=== PATIENT | female | born 1955 | race African-American/Black ===

== ENCOUNTER 2019-08-21 15:40 | IRF | payer OTHER, MEDICAID, MEDICARE, SELFPAY ==
[2019-08-21 15:40] VITALS: BP 154/80; PULSE 85; RESP 17; TEMP 36.5; O2SAT 100
[2019-08-21 16:26] VITALS: BMI 18.8
--- NOTE | 2019-08-21 16:43 | ADMGEN ---
This patient, Elina Reagan Sr., was admitted to [facility] Room 224-02. Patient/family oriented to hospital policies and general routines including ID bracelet, bed and alarms, visiting hours, pain management, procedures, bathroom and other care routines, personal items, smoking policy, room service/diet, and visiting hours. Valuables list has been completed. Information on how to activate the Rapid Response Team has been discussed. Patient/Family are encouraged to report perceived risks to care and to ask questions if they do not understand what they are told or what they should do.
--- NOTE | 2019-08-21 18:40 | PC.NURSE ---
CALLED PATIENT'S SISTER ORION TO ASK HER ADMISSION QUESTIONS. SISTER WAS ABLE TO ANSWER SOME QUESTIONS. PATIENT GOES BY [facility].
[2019-08-21 20:00] VITALS: PULSE 87; RESP 18; O2SAT 100
--- NOTE | 2019-08-21 20:05 | PC.NURSE ---
1700 and 1800 meds not available yet from pharmacy to give.
[2019-08-21 22:00] VITALS: BP 171/83; PULSE 87; RESP 18; TEMP 36.4; O2SAT 100
[2019-08-21] MEDS: AMITRIPTYLINE HCL 25 MG TABLET PO (22:24)
[2019-08-21] MEDS: MONTELUKAST SODIUM 10 MG TABLET PO (22:24)
[2019-08-21 22:25] VITALS: PULSE 87
[2019-08-21] MEDS: carvediloL 3.125 MG TABLET PO (22:25)
[2019-08-22] MEDS: SALINE 0.65% NAS SOLN 44 ML BTL 1 SPRAY NASAL (02:19)
[2019-08-22 04:51] LABS: Basophils Percent Auto 0.5 % (0.2-1.2); Eosinophils Absolute Auto 0.5 K/mm3 (0-0.3); Eosinophils Percent Auto 5.9 % (0-4.4); Hematocrit 42.6 % (37.0-47.0); Hemoglobin 13.6 g/dL (12.0-15.0); Immature Granulocyte Absolute 0.03 K/mm3 (0.00-0.031); Immature Granulocyte Percent A 0.3 % (0-0.5); Lymphocytes Absolute Auto 1.92 K/mm3 (0.9-3.2); Lymphocytes Percent Auto 22.1 % (18.3-44.2); Mean Corpuscular HGB Conc 31.9 g/dl (32-36); Mean Corpuscular Volume 84.7 fl (80-100); Mean Platelet Volume 10.2 fl (7.4-10.4); Monocytes Absolute Auto 0.7 K/mm3 (0.1-0.6); Monocytes Percent Auto 7.6 % (2.6-8.5); Neutrophils Absolute Auto 5.5 K/mm3 (1.3-6.7); Neutrophils Percent Auto 63.6 % (45.5-73.1); Platelet Count Result 431 k/mm3 (150-375); Red Blood Count 5.03 M/mm3 (4.2-5.4); Red Cell Distribution Width 14.3 % (11.5-14.5); White Blood Count 8.7 K/mm3 (4.5-10.0)
[2019-08-22 05:10] LABS: Blood Urea Nitrogen 26 mg/dL (7-17); Calcium 9.7 mg/dL (8.4-10.2); Carbon Dioxide 24 mmol/L (22-30); Chloride 104 mmol/L (98-107); Cholesterol 116 mg/dL (0-200); Estimated CRCL calculation 42 ml/min; Estimated Glomerular Filt Rate > 60; Glucose 90 mg/dL (65-105); HDL Direct 26 mg/dL; Potassium 3.6 mmol/L (3.4-5.0); Sodium 137 mmol/L (137-145); Triglycerides 93 mg/dL (<150)
[2019-08-22 05:20] LABS: LDL Cholesterol Direct 56 mg/dL
[2019-08-22 06:00] VITALS: BP 147/84; PULSE 76; RESP 18; TEMP 36.6; O2SAT 100
[2019-08-22 08:26] VITALS: PULSE 76
[2019-08-22] MEDS: carvediloL 3.125 MG TABLET PO ×2 (08:26→21:37)
[2019-08-22] MEDS: ASPIRIN 325 MG TABLET PO (08:26)
[2019-08-22] MEDS: AMITRIPTYLINE HCL 25 MG TABLET PO ×2 (08:26→17:11)
[2019-08-22] MEDS: SPIRONOLACTONE 25 MG TABLET PO (08:26)
[2019-08-22] MEDS: ATORVASTATIN 40 MG TABLET 80 MG PO (08:27)
[2019-08-22] MEDS: POTASSIUM CHLORIDE 20 MEQ PACKET (FOR LIQUID) PO (08:27)
[2019-08-22] MEDS: FUROSEMIDE 10 MG TABLET PO (08:28)
--- NOTE | 2019-08-22 12:30 | WPDREHABHP ---
H&P: HPI History of Present Illness Chief complaint: CVA Narrative: Elina Reagan is a 63 year old femaleHISTORY OF PRESENT ILLNESS: The patient's primary rehab impairment category is 0 1/stroke The etiologic diagnosis is left middle cerebral artery territory infarction with mild local mass effect I saw this patient [id number] on August 22, 2019 at 12:30 p.m. The patient is a 63-year-old Afro Cym[place] woman with a past medical history of hypertension, diabetes mellitus type 2, mitral regurgitation, coronary artery disease, and right hemispheric stroke with no residual who presented to [facility] in [facility] with acute onset of aphasia and the right sided weakness. NIHSS was 17. Head CT showed old right parietal lobe infarct with no acute findings. TPA was administered at 11 12 on August 14, 2019. CTA was negative for large vessel occlusion. She was transferred to [facility] for further management. On arrival to [place] she was severely aphasic awake but inattentive with minimal right upper extremity/ right lower extremity movement. Neurology was consulted and after tPA precautions were exhausted the patient was restarted on aspirin and Plavix. Atorvastatin was resumed. Permissive hypertension was allowed. SHARIF on August 17, 2019 was negative for shunt or anything else is action fraction was 35%. Patient was diagnosed with the UTI and started on IV ceftriaxone which was completed on August 19, 2019. She failed her initial swallowing study that was retested on August 19, 2019 and past for a dysphagia 2 diet. Physical examination continues to reveal right-sided significant weakness decreased gross motor control impaired balance decreased safety awareness along with severe aphasia both receptive and expressive. Neurologic Neurology discontinued her Plavix on August 18, 2019 as there is no clear indication for use since she is continued on aspirin 325 milligram daily according to the screening protocol the patient was supposed to be on Lovenox for DVT prophylaxis which she has a good started here as she was getting over there. The patient has not traveled outside the [place] or had close personal contact with anyone that is ill that has traveled outside the [place] in the past 21 days. Patient has not traveled to an area of the [place] that is experiencing noon transmission of the Coronavirus and has not had close personal contact with anyone that has. The patient does not have a fever and is not experiencing any upper or LEs periphery illness Therapy was initiated at the acute care facility and the patient transferred to us from [facility] on August 21, 2019 on FALLS OR SURGERIES: The patient has had no major surgeries in the 100 days prior to admission. They had no falls in the past year. They had no falls with injury in the past year. 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 SOCIAL HISTORY: The patient lives with her in a 1 level home with 60 steps to enter. She was completely independent and driving prior. Her is disabled. Son is available to assist patient following rehab if necessary. I spoke with the patient's sister as patient is aphasic ( this is the communication between the sister on our screener ) there is no reported falls or major surgery former smoker occasional alcohol use no drug use FAMILY HISTORY: mother with heart attack diabetes and hypertension PRIOR LEVEL OF FUNCTION: Eating was INDEPENDENT Oral Care was INDEPENDENT Toileting Hygiene was IN
[2019-08-22 14:00] VITALS: BP 127/81; PULSE 84; RESP 20; TEMP 37.1; O2SAT 98
[2019-08-22] MEDS: ENOXAPARIN 40 MG/0.4 ML SYRINGE SUB-Q (17:10)
[2019-08-22] MEDS: MONTELUKAST SODIUM 10 MG TABLET PO (17:11)
[2019-08-22 21:37] VITALS: PULSE 82
[2019-08-22 22:00] VITALS: BP 127/72; PULSE 88; RESP 18; TEMP 36.7; O2SAT 98
[2019-08-23 06:00] VITALS: BP 114/83; PULSE 76; RESP 16; TEMP 36.3; O2SAT 100
[2019-08-23] MEDS: AMITRIPTYLINE HCL 25 MG TABLET PO ×2 (09:48→17:49)
[2019-08-23] MEDS: ATORVASTATIN 40 MG TABLET 80 MG PO (09:48)
[2019-08-23] MEDS: ASPIRIN 325 MG TABLET PO (09:48)
[2019-08-23] MEDS: ENOXAPARIN 40 MG/0.4 ML SYRINGE SUB-Q (09:48)
[2019-08-23 09:49] VITALS: PULSE 68
[2019-08-23] MEDS: POTASSIUM CHLORIDE 20 MEQ PACKET (FOR LIQUID) PO (09:49)
[2019-08-23] MEDS: FUROSEMIDE 10 MG TABLET PO (09:49)
[2019-08-23] MEDS: SPIRONOLACTONE 25 MG TABLET PO (09:49)
[2019-08-23] MEDS: carvediloL 3.125 MG TABLET PO ×2 (09:49→21:08)
[2019-08-23 14:00] VITALS: BP 144/89; PULSE 52; RESP 18; TEMP 36.9; O2SAT 100
--- NOTE | 2019-08-23 17:21 | WPDNEURORHBP ---
Subjective Date/time seen: 08/23/19 17:21 Interval history: this 63-year-old woman is here after having had rather significant left hemispheric stroke which has left her with aphasia and dense right-sided almost hemiplegia she is not eating much and would require making A's which have ordered overall picture is stable seems to be not any distress and as best I could determine determine she has not any pain particularly denies any headache chest pain fever chills sore throat Review of Systems Review of Systems: All systems reviewed & are unremarkable except as noted in HPI and below Functional Status Ambulation Ability Ambulation Assistive Devices: Parallel Bars Transfers Ability Ability to Transfer In/Out of Chair: Maximum Assistance X 1 Exam Const: General: comfortable and no acute distress HENMT: General nose exam: Normal nares present Mouth: Yes moist mucous membranes Eyes: General: appearance normal, both eyes and all related structures Neck: Neck: supple and no JVD Resp: Effort & Inspection: normal respiratory effort Auscultation: clear to auscultation bilaterally Cardio: Rate: regular rate Rhythm: regular rhythm GI: GI Palp: Yes Soft to palpation Auscultation: normal bowel sounds Skin: General skin exam: normal color and no rashes or lesions noted Neuro: Other: dense aphasia and right-sided weakness Extrem: General: normal to inspection Psych: Other: aphasic Objective Data Vital Signs Vital Signs: Vital Signs - 24 hr 08/22/19 21:37 08/22/19 22:00 08/23/19 06:00 Temperature 36.7 C 36.3 C L Pulse Rate 82 88 76 Respiratory Rate 18 16 Blood Pressure 127/72 114/83 Pulse Oximetry 98 100 08/23/19 09:49 08/23/19 14:00 Temperature 36.9 C Pulse Rate 68 52 L Respiratory Rate 18 Blood Pressure 144/89 H Pulse Oximetry 100 Intake/Output Intake/Output: Intake & Output 08/20/19 08/21/19 08/22/19 08/23/19 23:59 23:59 23:59 23:59 Intake Total 100 240 120 Balance 100 240 120 Meds/Results Medications: Active Medications Generic Name Dose Route Start Last Admin Trade Name Freq PRN Reason Stop Dose Admin Amitriptyline HCl 25 mg 08/21/19 17:00 08/23/19 09:48 Elavil PO 25 mg BID CYRIL Administration Aspirin 325 mg 08/22/19 09:00 08/23/19 09:48 Aspirin PO 325 mg DAILY CYRIL Administration Atorvastatin Calcium 80 mg 08/22/19 09:00 08/23/19 09:48 Lipitor PO 80 mg DAILY CYRIL Administration Carvedilol 3.125 mg 08/21/19 21:00 08/23/19 09:49 Coreg PO 3.125 mg Q12HR CYRIL Administration Enoxaparin Sodium 40 mg 08/23/19 09:00 08/23/19 09:48 Lovenox SUB-Q 40 mg DAILY CYRIL Administration Furosemide 10 mg 08/22/19 09:00 08/23/19 09:49 Lasix Tablet PO 10 mg DAILY CYRIL Administration Montelukast Sodium 10 mg 08/21/19 18:00 08/22/19 17:11 Singulair PO 10 mg QPM CYRIL Administration Potassium Chloride 20 meq 08/22/19 09:00 08/23/19 09:49 Kcl Powder (For Liquid) PO 20 meq DAILY CYRIL Administration Sodium Chloride 1 spray 08/22/19 01:56 08/22/19 02:19 [place] Nasal [place] NASAL 1 spray Q6HR PRN Administration Congestion Spironolactone 25 mg 08/22/19 09:00 08/23/19 09:49 Aldactone PO 25 mg DAILY CYRIL Administration Progress Note: A&P Assessment and Plan (1) History of stroke: Code(s): Z86.73 - Personal history of transient ischemic attack (TIA), and cerebral infarction without residual deficits Status: Acute (2) Hypertension: Code(s): I10 - Essential (primary) hypertension Status: Acute (3) Diabetes mellitus: Code(s): E11.9 - Type 2 diabetes mellitus without complications Status: Acute (4) Left middle cerebral artery stroke: Code(s): I63.512 - Cerebral infarction due to unspecified occlusion or stenosis of left middle cerebral artery Status: Acute Additional Plan continue speech PT OT add Megace for appetite rest of
[2019-08-23] MEDS: MONTELUKAST SODIUM 10 MG TABLET PO (17:49)
[2019-08-23 21:08] VITALS: PULSE 72
[2019-08-23 22:00] VITALS: BP 125/97; PULSE 88; RESP 18; TEMP 36.4; O2SAT 100
[2019-08-24 05:11] LABS: Potassium 4.2 mmol/L (3.4-5.0)
[2019-08-24 05:19] LABS: Hemoglobin A1C 5.6 % (<5.7)
[2019-08-24 06:00] VITALS: BP 137/82; PULSE 46; RESP 18; TEMP 36.1; O2SAT 100
[2019-08-24] MEDS: MEGESTROL ACETATE (*CHEMO) ORAL SUSP 40 MG/ML SYR 400 MG PO ×2 (08:33→17:06)
[2019-08-24] MEDS: ATORVASTATIN 40 MG TABLET 80 MG PO (08:33)
[2019-08-24 08:34] VITALS: PULSE 48
[2019-08-24] MEDS: ENOXAPARIN 40 MG/0.4 ML SYRINGE SUB-Q (08:34)
[2019-08-24] MEDS: POTASSIUM CHLORIDE 20 MEQ PACKET (FOR LIQUID) PO (08:34)
[2019-08-24] MEDS: SPIRONOLACTONE 25 MG TABLET PO (08:34)
[2019-08-24] MEDS: ASPIRIN 325 MG TABLET PO (08:34)
[2019-08-24] MEDS: FUROSEMIDE 10 MG TABLET PO (08:35)
[2019-08-24 09:41] VITALS: BMI 18.8
--- NOTE | 2019-08-24 11:06 | WPDNEURORHBP ---
Subjective Date/time seen: Left hemisphericstroke with aphasia and right hemiplegia with DM08/24/19 11:06 Review of Systems Review of Systems: All systems reviewed & are unremarkable except as noted in HPI and below Functional Status Ambulation Ability Ambulation Assistive Devices: Parallel Bars Transfers Ability Ability to Transfer In/Out of Chair: Maximum Assistance X 1 Exam Const: General: no acute distress HENMT: Head: normal to inspection General nose exam: Normal external nose present and No nasal discharge present Mouth: Yes Normal oral and palatal mucosa present Eyes: General: appearance normal, both eyes and all related structures Neck: Neck: normal visual inspection Resp: Effort & Inspection: normal respiratory effort Auscultation: clear to auscultation bilaterally Cardio: Rate: regular rate Rhythm: regular rhythm GI: Auscultation: normal bowel sounds Skin: General skin exam: no rashes or lesions noted Neuro: Speech: aphasia Motor exam (neuro): Abnormal motor strength present (right hemiplegia) Psych: Appearance: grossly normal Objective Data Vital Signs Vital Signs: Vital Signs - 24 hr 08/23/19 14:00 08/23/19 21:08 08/23/19 22:00 Temperature 36.9 C 36.4 C L Pulse Rate 52 L 72 88 Respiratory Rate 18 18 Blood Pressure 144/89 H 125/97 H Pulse Oximetry 100 100 08/24/19 06:00 08/24/19 08:34 Temperature 36.1 C L Pulse Rate 46 L 48 L Respiratory Rate 18 Blood Pressure 137/82 Pulse Oximetry 100 Intake/Output Intake/Output: Intake & Output 08/21/19 08/22/19 08/23/19 08/24/19 23:59 23:59 23:59 23:59 Intake Total 100 240 240 240 Balance 100 240 240 240 Meds/Results Medications: Active Medications Generic Name Dose Route Start Last Admin Trade Name Freq PRN Reason Stop Dose Admin Amitriptyline HCl 25 mg 08/21/19 17:00 08/23/19 17:49 Elavil PO 25 mg BID CYRIL Administration Aspirin 325 mg 08/22/19 09:00 08/24/19 08:34 Aspirin PO 325 mg DAILY CYRIL Administration Atorvastatin Calcium 80 mg 08/22/19 09:00 08/24/19 08:33 Lipitor PO 80 mg DAILY CYRIL Administration Carvedilol 3.125 mg 08/21/19 21:00 08/24/19 08:34 Coreg PO Not Given Q12HR CYRIL Enoxaparin Sodium 40 mg 08/23/19 09:00 08/24/19 08:34 Lovenox SUB-Q 40 mg DAILY CYRIL Administration Furosemide 10 mg 08/22/19 09:00 08/24/19 08:35 Lasix Tablet PO 10 mg DAILY CYRIL Administration Megestrol Acetate 400 mg 08/24/19 09:00 08/24/19 08:33 Megace Oral Susp PO 400 mg BID CYRIL Administration Montelukast Sodium 10 mg 08/21/19 18:00 08/23/19 17:49 Singulair PO 10 mg QPM CYRIL Administration Potassium Chloride 20 meq 08/22/19 09:00 08/24/19 08:34 Kcl Powder (For Liquid) PO 20 meq DAILY CYRIL Administration Sodium Chloride 1 spray 08/22/19 01:56 08/22/19 02:19 [place] Nasal [place] NASAL 1 spray Q6HR PRN Administration Congestion Spironolactone 25 mg 08/22/19 09:00 08/24/19 08:34 Aldactone PO 25 mg DAILY CYRIL Administration Labs Labs: Laboratory Results - last 24 hr 08/24/19 08/24/19 04:40 04:40 Potassium 4.2 Hemoglobin A1c 5.6 Progress Note: A&P Assessment and Plan (1) History of stroke: Code(s): Z86.73 - Personal history of transient ischemic attack (TIA), and cerebral infarction without residual deficits Status: Acute (2) Hypertension: Code(s): I10 - Essential (primary) hypertension Status: Acute (3) Diabetes mellitus: Code(s): E11.9 - Type 2 diabetes mellitus without complications Status: Acute (4) Left middle cerebral artery stroke: Code(s): I63.512 - Cerebral infarction due to unspecified occlusion or stenosis of left middle cerebral artery Status: Acute (5) Anorexia: Code(s): R63.0 - Anorexia Status: Acute Additional Plan on megace for apetite neuro unchanged treatment continues
[2019-08-24] MEDS: AMITRIPTYLINE HCL 25 MG TABLET PO ×2 (11:53→17:07)
--- NOTE | 2019-08-24 12:33 | RPD ---
INDIVIDUALIZED PLAN OF CARE FOR Elina Reagan Brief Synthesis of Pre-Admission Screen, Post-Admission Evaluation and Therapy Evaluations: The patient presents to rehab with a left middle cerebral artery territory infarction with mild local mass effect. Comorbidities include: Aphasia, dysphagia, right-sided hemiparesis, congestive heart failure, depression, arthritis, hypercholesterolemia, hypertension, mitral regurgitation, peripheral vascular disease, hypernatremia, chronic large right parietal lobe infarct, diabetes mellitus type 2, hypertension, coronary artery disease, urinary tract infection, right labial moisture associated abrasion. The patient requires physician services for neurology services, medical oversight, and coordination of care. The patient needs physician monitoring and treatment of hypertension, dysphagia, monitoring for adverse reactions to new medications, monitoring for infection, and pain control. The patient requires nursing services for frequent neuro checks, anticoagulation therapy, medication management and education, pressure relief and skin care management, monitoring of labs, bowel and bladder training, wound care, and fall/safety precautions. Deficits include:ADLs, Balance, Cognition, Endurance, Family Training/Education, Mobility, Pain Management, ROM, Safety,Speech, Strength, Swallowing, Transfers Plate And Frame Filter Operator/Case Management for: Discharge Planning and Patient/Family Counseling Physical Therapy: 5 days per week for 60 minutes. Treatments may include: Therapeutic Exercise, Gait Training, Neuromuscular Re-education, Transfer Training, Community Reintegration, Bed Mobility, Patient/Family Education, Wheelchair Mobility Group Therapy/Concurrent Therapy Rationales: -Improve attention span during functional activities in a distracted environment. -Enhance problem solving and/or adequate judgment skills during functional activities in a distracted environment. -Promote increased safety awareness in a distracted environment to reduce fall risk with functional tasks, transfers, and ambulation to allow a more safe, self-sufficient return to the home environment. -Improve dynamic balance skills to promote safety and independence with functional activities in a distracted environment for maximum gain. Occupational Therapy: 5 days per week for 60 minutes. Treatments may include: Therapeutic Exercise, Therapeutic Activity, Cognitive Training, Self-Care Transfer Training, Community Reintegration, Home Management, Patient/Family Education, Wheelchair Mobility Training, Energy Conservation Training Group Therapy/Concurrent Therapy Rationales: -Allow therapist to observe and teach generalization and carry-over of skills learned in individual therapy. -Enhance problem solving and sequencing skills during therapeutic activities in a distracted environment. -Promote increased safety awareness in a realistic setting to reduce fall risk with functional tasks due to visual and verbal distractions. -Increase functional level with ADLs, ADL transfers and use of adaptive equipment through therapeutic activities with others while promoting safety to allow a more safe, self-sufficient return home. Speech Therapy: 5 days per week for 60 minutes. Treatments may include: Dysphasia Therapy, Speech/Language/Communication Therapy, Cognitive Training, Patient/Family Education Group Therapy/Concurrent Therapy - Rationale: -Allow therapist to observe and teach generalization and carry-over of skills learned in individual therapy. -Improve comprehension skills with complex or abstract ideas through discussion in a realistic setting. -Enhance problem solving skills with complex issues during activities in a distracted environment. -Promote increased memory skills and concentration in a distracted environment for a safe transition home. -Improve attention and focus with language/communication skills in a realistic and supportive therapeutic setting. -Allow for pract
[2019-08-24 14:00] VITALS: BP 143/88; PULSE 78; RESP 20; TEMP 36.1; O2SAT 100
[2019-08-24] MEDS: MONTELUKAST SODIUM 10 MG TABLET PO (17:06)
[2019-08-24 20:31] VITALS: PULSE 80
[2019-08-24] MEDS: carvediloL 3.125 MG TABLET PO (20:31)
[2019-08-24] MEDS: MELATONIN 5 MG TABLET PO (20:31)
[2019-08-24] MEDS: CYCLOBENZAPRINE HCL 5 MG TABLET PO (20:33)
[2019-08-24 22:00] VITALS: BP 136/94; PULSE 92; RESP 16; TEMP 36.8; O2SAT 98
[2019-08-25 06:00] VITALS: BP 126/73; PULSE 80; RESP 18; TEMP 36.4; O2SAT 97
[2019-08-25] MEDS: AMITRIPTYLINE HCL 25 MG TABLET PO ×2 (09:10→17:46)
[2019-08-25] MEDS: POTASSIUM CHLORIDE 20 MEQ PACKET (FOR LIQUID) PO (09:10)
[2019-08-25] MEDS: ATORVASTATIN 40 MG TABLET 80 MG PO (09:10)
[2019-08-25] MEDS: MEGESTROL ACETATE (*CHEMO) ORAL SUSP 40 MG/ML SYR 400 MG PO ×2 (09:10→17:46)
[2019-08-25] MEDS: ENOXAPARIN 40 MG/0.4 ML SYRINGE SUB-Q (09:10)
[2019-08-25] MEDS: ASPIRIN 325 MG TABLET PO (09:10)
[2019-08-25 09:11] VITALS: PULSE 80
[2019-08-25] MEDS: SPIRONOLACTONE 25 MG TABLET PO (09:11)
[2019-08-25] MEDS: carvediloL 3.125 MG TABLET PO ×2 (09:11→20:45)
[2019-08-25] MEDS: FUROSEMIDE 10 MG TABLET PO (09:11)
--- NOTE | 2019-08-25 13:21 | WPDNEURORHBP ---
Subjective Date/time seen: 08/25/19 13:21 Interval history: this 63-year-old woman is here after having had rather large left hemispheric stroke which has left her with aphasia and right-sided hemiplegia she is not eating much we will change our diet hopefully she will do better there are no new symptoms nothing seems to be hurting and she has not any distress smiling and at best she can cooperate with the aphasia she is cooperating with the therapy She denies any headache nausea vomiting chest pain shortness of breath fever chills sore throat Review of Systems Review of Systems: All systems reviewed & are unremarkable except as noted in HPI and below Functional Status Ambulation Ability Ability to Ambulate 10 Feet: Maximum Assistance X 1 Ambulation Assistive Devices: Mechanical Lift Transfers Ability Ability to Transfer In/Out of Chair: Maximum Assistance X 1 Exam Const: General: comfortable and no acute distress HENMT: General nose exam: Normal nares present Mouth: Yes moist mucous membranes Eyes: General: appearance normal, both eyes and all related structures Neck: Neck: supple and no JVD Resp: Effort & Inspection: normal respiratory effort Auscultation: clear to auscultation bilaterally Cardio: Rate: regular rate Rhythm: regular rhythm GI: GI Palp: Yes Soft to palpation Auscultation: normal bowel sounds Skin: General skin exam: normal color and no rashes or lesions noted Neuro: Other: she is completely aphasic has a jargon speech and right-sided hemiplegia Extrem: General: normal to inspection Psych: Other: patient is completely aphasic Objective Data Vital Signs Vital Signs: Vital Signs - 24 hr 08/24/19 14:00 08/24/19 20:31 08/24/19 22:00 Temperature 36.1 C L 36.8 C Pulse Rate 78 80 92 Respiratory Rate 20 16 Blood Pressure 143/88 H 136/94 H Pulse Oximetry 100 98 08/25/19 06:00 08/25/19 09:11 Temperature 36.4 C L Pulse Rate 80 80 Respiratory Rate 18 Blood Pressure 126/73 Pulse Oximetry 97 Intake/Output Intake/Output: Intake & Output 08/22/19 08/23/19 08/24/19 08/25/19 23:59 23:59 23:59 23:59 Intake Total 240 240 360 240 Balance 240 240 360 240 Meds/Results Medications: Active Medications Generic Name Dose Route Start Last Admin Trade Name Freq PRN Reason Stop Dose Admin Amitriptyline HCl 25 mg 08/21/19 17:00 08/25/19 09:10 Elavil PO 25 mg BID CYRIL Administration Aspirin 325 mg 08/22/19 09:00 08/25/19 09:10 Aspirin PO 325 mg DAILY CYRIL Administration Atorvastatin Calcium 80 mg 08/22/19 09:00 08/25/19 09:10 Lipitor PO 80 mg DAILY CYRIL Administration Carvedilol 3.125 mg 08/21/19 21:00 08/25/19 09:11 Coreg PO 3.125 mg Q12HR CYRIL Administration Cyclobenzaprine HCl 5 mg 08/24/19 18:18 08/24/19 20:33 Flexeril PO 5 mg Q8H PRN Administration Muscle Spasm Enoxaparin Sodium 40 mg 08/23/19 09:00 08/25/19 09:10 Lovenox SUB-Q 40 mg DAILY CYRIL Administration Furosemide 10 mg 08/22/19 09:00 08/25/19 09:11 Lasix Tablet PO 10 mg DAILY CYRIL Administration Megestrol Acetate 400 mg 08/24/19 09:00 08/25/19 09:10 Megace Oral Susp PO 400 mg BID CYRIL Administration Melatonin 5 mg 08/24/19 21:00 08/24/19 20:31 Melatonin PO 5 mg HS CYRIL Administration Montelukast Sodium 10 mg 08/21/19 18:00 08/24/19 17:06 Singulair PO 10 mg QPM CYRIL Administration Potassium Chloride 20 meq 08/22/19 09:00 08/25/19 09:10 Kcl Powder (For Liquid) PO 20 meq DAILY CYRIL Administration Sodium Chloride 1 spray 08/22/19 01:56 08/22/19 02:19 [place] Nasal [place] NASAL 1 spray Q6HR PRN Administration Congestion Spironolactone 25 mg 08/22/19 09:00 08/25/19 09:11 Aldactone PO 25 mg DAILY CYRIL Administration Progress Note: A&P Assessment and Plan (1) Anorexia: Code(s): R63.0 - Anorexia Status: Acute (2) History of stroke: Code(s)
[2019-08-25 14:00] VITALS: BP 142/78; PULSE 80; RESP 18; TEMP 36.5; O2SAT 100
[2019-08-25] MEDS: MONTELUKAST SODIUM 10 MG TABLET PO (17:46)
[2019-08-25 20:00] VITALS: PULSE 88; RESP 18; O2SAT 100
[2019-08-25 20:45] VITALS: PULSE 88
[2019-08-25] MEDS: MELATONIN 5 MG TABLET PO (20:46)
[2019-08-25 21:59] VITALS: BP 137/74; PULSE 88; RESP 18; TEMP 36.4; O2SAT 100
[2019-08-26 05:03] LABS: Potassium 4.2 mmol/L (3.4-5.0)
[2019-08-26 10:09] VITALS: PULSE 88
[2019-08-26] MEDS: carvediloL 3.125 MG TABLET PO ×2 (10:09→21:12)
[2019-08-26] MEDS: ATORVASTATIN 40 MG TABLET 80 MG PO (10:09)
[2019-08-26] MEDS: AMITRIPTYLINE HCL 25 MG TABLET PO ×2 (10:09→18:24)
[2019-08-26] MEDS: ASPIRIN 325 MG TABLET PO (10:09)
[2019-08-26] MEDS: ENOXAPARIN 40 MG/0.4 ML SYRINGE SUB-Q (10:10)
[2019-08-26] MEDS: POTASSIUM CHLORIDE 20 MEQ PACKET (FOR LIQUID) PO (10:10)
[2019-08-26] MEDS: SPIRONOLACTONE 25 MG TABLET PO (10:10)
[2019-08-26] MEDS: MEGESTROL ACETATE (*CHEMO) ORAL SUSP 40 MG/ML SYR 400 MG PO ×2 (10:10→18:23)
[2019-08-26] MEDS: FUROSEMIDE 10 MG TABLET PO (10:14)
--- NOTE | 2019-08-26 13:55 | WPDNEURORHBP ---
Subjective Date/time seen: 08/26/19 13:55 Interval history: this 63-year-old woman is here after having had a left hemispheric stroke which has left her with the significant aphasia and right-sided hemiplegia she is relatively better emotionally and trying to talk however still has a jargon speech able to follow few simple commands right hemiplegia is stable she is relatively eating better and working with the speech pathologist As best I can tell there is no headache nausea vomiting chest pain shortness of breath fever chills or sore Review of Systems Review of Systems: All systems reviewed & are unremarkable except as noted in HPI and below Functional Status Ambulation Ability Ability to Ambulate 10 Feet: Maximum Assistance X 1 Ambulation Assistive Devices: Parallel Bars Transfers Ability Ability to Transfer In/Out of Chair: Maximum Assistance X 1 Exam Const: General: comfortable and no acute distress HENMT: General nose exam: Normal nares present Mouth: Yes moist mucous membranes Eyes: General: appearance normal, both eyes and all related structures Neck: Neck: supple and no JVD Resp: Effort & Inspection: normal respiratory effort Auscultation: clear to auscultation bilaterally Cardio: Rate: regular rate Rhythm: regular rhythm GI: GI Palp: Yes Soft to palpation Auscultation: normal bowel sounds Skin: General skin exam: normal color and no rashes or lesions noted Neuro: Other: patient is awake and alert and aphasic and it is difficult to assess her mental functions however she is smiling cheerful following simple commands and right hemiplegia is stable Extrem: General: normal to inspection Psych: Other: mixed aphasia the patient is alert does not seem to be either depressed psychotic belligerent Objective Data Vital Signs Vital Signs: Vital Signs - 24 hr 08/25/19 14:00 08/25/19 20:00 08/25/19 20:45 Temperature 36.5 C Pulse Rate 80 88 88 Respiratory Rate 18 18 Blood Pressure 142/78 H Pulse Oximetry 100 100 08/25/19 21:59 08/26/19 10:09 Temperature 36.4 C L Pulse Rate 88 88 Respiratory Rate 18 Blood Pressure 137/74 Pulse Oximetry 100 Intake/Output Intake/Output: Intake & Output 08/23/19 08/24/19 08/25/19 08/26/19 23:59 23:59 23:59 23:59 Intake Total 240 360 360 Balance 240 360 360 Meds/Results Medications: Active Medications Generic Name Dose Route Start Last Admin Trade Name Freq PRN Reason Stop Dose Admin Amitriptyline HCl 25 mg 08/21/19 17:00 08/26/19 10:09 Elavil PO 25 mg BID CYRIL Administration Aspirin 325 mg 08/22/19 09:00 08/26/19 10:09 Aspirin PO 325 mg DAILY CYRIL Administration Atorvastatin Calcium 80 mg 08/22/19 09:00 08/26/19 10:09 Lipitor PO 80 mg DAILY CYRIL Administration Carvedilol 3.125 mg 08/21/19 21:00 08/26/19 10:09 Coreg PO 3.125 mg Q12HR CYRIL Administration Cyclobenzaprine HCl 5 mg 08/24/19 18:18 08/24/19 20:33 Flexeril PO 5 mg Q8H PRN Administration Muscle Spasm Enoxaparin Sodium 40 mg 08/23/19 09:00 08/26/19 10:10 Lovenox SUB-Q 40 mg DAILY CYRIL Administration Furosemide 10 mg 08/22/19 09:00 08/26/19 10:14 Lasix Tablet PO 10 mg DAILY CYRIL Administration Megestrol Acetate 400 mg 08/24/19 09:00 08/26/19 10:10 Megace Oral Susp PO 400 mg BID CYRIL Administration Melatonin 5 mg 08/24/19 21:00 08/25/19 20:46 Melatonin PO 5 mg HS CYRIL Administration Montelukast Sodium 10 mg 08/21/19 18:00 08/25/19 17:46 Singulair PO 10 mg QPM CYRIL Administration Potassium Chloride 20 meq 08/22/19 09:00 08/26/19 10:10 Kcl Powder (For Liquid) PO 20 meq DAILY CYRIL Administration Sodium Chloride 1 spray 08/22/19 01:56 08/22/19 02:19 [place] Nasal [place] NASAL 1 spray Q6HR PRN Administration Congestion Spironolactone 25 mg 08/22/19 09:00 08/26/19 10:10 Aldactone PO 25 mg DAILY CYRIL Administration Labs Labs:
[2019-08-26 14:00] VITALS: BP 120/79; PULSE 86; RESP 18; TEMP 36.5; O2SAT 99
[2019-08-26] MEDS: MONTELUKAST SODIUM 10 MG TABLET PO (18:24)
[2019-08-26 20:00] VITALS: PULSE 90; RESP 18; O2SAT 100
[2019-08-26 21:12] VITALS: PULSE 90
[2019-08-26] MEDS: MELATONIN 5 MG TABLET PO (21:13)
[2019-08-26 22:00] VITALS: BP 140/84; PULSE 90; RESP 18; TEMP 36.5; O2SAT 100
[2019-08-27 06:00] VITALS: BP 156/96; PULSE 88; RESP 19; TEMP 36.3; O2SAT 100
[2019-08-27] MEDS: ENOXAPARIN 40 MG/0.4 ML SYRINGE SUB-Q (10:39)
[2019-08-27 10:40] VITALS: PULSE 88
[2019-08-27] MEDS: carvediloL 3.125 MG TABLET PO ×2 (10:40→20:48)
[2019-08-27] MEDS: AMITRIPTYLINE HCL 25 MG TABLET PO ×2 (10:40→18:29)
[2019-08-27] MEDS: ASPIRIN 325 MG TABLET PO (10:40)
[2019-08-27] MEDS: ATORVASTATIN 40 MG TABLET 80 MG PO (10:40)
[2019-08-27] MEDS: SPIRONOLACTONE 25 MG TABLET PO (10:41)
[2019-08-27] MEDS: POTASSIUM CHLORIDE 20 MEQ PACKET (FOR LIQUID) PO (10:41)
[2019-08-27] MEDS: MEGESTROL ACETATE (*CHEMO) ORAL SUSP 40 MG/ML SYR 400 MG PO ×2 (10:41→18:29)
[2019-08-27] MEDS: FUROSEMIDE 10 MG TABLET PO (11:02)
--- NOTE | 2019-08-27 11:49 | PCDIET ---
Nutrition Follow-Up Complete: Nutrition Diagnosis: Suboptimal oral intake related to decreased appetite as evidenced by average intake of 27% of meals since admission. Nutrition Goal: Patient to consume 50% of meals/supplements or more. Goal in progress. Spoke with nurse aid via phone due to COVID-19 precautions. Nurse aid reports patient is not eating well (~30-40% of meals) but has been taking shakes. Recommend continuing Ensure Compact TID. Average intake from 08/25/19 was close to 50%. Diet is minced and moist, 2gram sodium which is appropriate. Last recorded weight is 48.4 kg. Recommend obtaining new weight. Bowel Motility: BM x 1 yesterday, per nurse aid. Labs Reviewed: K (4.2) Meds Noted: Lasix, Megace, KCl, Aldactone Additional Notes: Left buttock macerated. No other skin issues reported. Will continue to monitor with same goals. Nutrition Monitoring and Evaluation: Follow up in 5 days.
--- NOTE | 2019-08-27 13:42 | WPDNEURORHBP ---
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 she is better overall and the fact that she is eating better and able to follow simple commands but remains aphasic and with rather dense right-sided hemiplegia seems to be not any distress denies any headache chest pain shortness of breath fever chills or sore throat Review of Systems Review of Systems: All systems reviewed & are unremarkable except as noted in HPI and below Functional Status Ambulation Ability Ability to Ambulate 10 Feet: Moderate Assistance X 1 Ambulation Assistive Devices: Railings Transfers Ability Ability to Transfer In/Out of Chair: Moderate Assistance X 1 Exam Const: General: comfortable and no acute distress HENMT: General nose exam: Normal nares present Mouth: Yes moist mucous membranes Eyes: General: appearance normal, both eyes and all related structures Neck: Neck: supple and no JVD Resp: Effort & Inspection: normal respiratory effort Auscultation: clear to auscultation bilaterally Cardio: Rate: regular rate Rhythm: regular rhythm GI: GI Palp: Yes Soft to palpation Auscultation: normal bowel sounds Skin: General skin exam: normal color and no rashes or lesions noted Neuro: Other: patient is awake alert follows commands completely aphasic with right-sided hemiplegia Extrem: General: normal to inspection Psych: Other: patient is aphasia Objective Data Vital Signs Vital Signs: Vital Signs - 24 hr 08/27/19 14:00 08/27/19 20:48 08/27/19 22:00 Temperature 36.2 C L 36.7 C Pulse Rate 93 90 93 Respiratory Rate 18 17 Blood Pressure 152/98 H 164/91 H Pulse Oximetry 100 100 08/28/19 06:00 08/28/19 08:29 Temperature 36.6 C Pulse Rate 90 90 Respiratory Rate 18 Blood Pressure 160/81 H Pulse Oximetry 99 Intake/Output Intake/Output: Intake & Output 08/25/19 08/26/19 08/27/19 08/28/19 23:59 23:59 23:59 23:59 Intake Total 409 094 9179 360 Balance 139 533 0083 360 Meds/Results Medications: Active Medications Generic Name Dose Route Start Last Admin Trade Name Freq PRN Reason Stop Dose Admin Amitriptyline HCl 25 mg 08/21/19 17:00 08/28/19 08:29 Elavil PO 25 mg BID CYRIL Administration Aspirin 325 mg 08/22/19 09:00 08/28/19 08:29 Aspirin PO 325 mg DAILY CYRIL Administration Atorvastatin Calcium 80 mg 08/22/19 09:00 08/28/19 08:29 Lipitor PO 80 mg DAILY CYRIL Administration Carvedilol 3.125 mg 08/21/19 21:00 08/28/19 08:29 Coreg PO 3.125 mg Q12HR CYRIL Administration Cyclobenzaprine HCl 5 mg 08/24/19 18:18 08/27/19 20:48 Flexeril PO 5 mg Q8H PRN Administration Muscle Spasm Enoxaparin Sodium 40 mg 08/23/19 09:00 08/28/19 08:30 Lovenox SUB-Q 40 mg DAILY CYRIL Administration Furosemide 10 mg 08/22/19 09:00 08/28/19 10:50 Lasix Tablet PO 10 mg DAILY CYRIL Administration Megestrol Acetate 400 mg 08/24/19 09:00 08/28/19 08:30 Megace Oral Susp PO 400 mg BID CYRIL Administration Melatonin 5 mg 08/24/19 21:00 08/27/19 20:48 Melatonin PO 5 mg HS CYRIL Administration Montelukast Sodium 10 mg 08/21/19 18:00 08/27/19 18:29 Singulair PO 10 mg QPM CYRIL Administration Potassium Chloride 20 meq 08/22/19 09:00 08/28/19 08:27 Kcl Powder (For Liquid) PO 20 meq DAILY CYRIL Administration Sodium Chloride 1 spray 08/22/19 01:56 08/22/19 02:19 [place] Nasal [place] NASAL 1 spray Q6HR PRN Administration Congestion Spironolactone 25 mg 08/22/19 09:00 08/28/19 08:30 Aldactone PO 25 mg DAILY CYRIL Administration Labs Labs: Laboratory Results - last 24 hr 08/28/19 04:37 Potassium 4.7 Progress Note: A&P Assessment and Plan (1) Anorexia: Code(s): R63.0 - Anorexia Status: Acute (2) History of stroke:
[2019-08-27 14:00] VITALS: BP 152/98; PULSE 93; RESP 18; TEMP 36.2; O2SAT 100
[2019-08-27] MEDS: MONTELUKAST SODIUM 10 MG TABLET PO (18:29)
[2019-08-27 20:48] VITALS: PULSE 90
[2019-08-27] MEDS: MELATONIN 5 MG TABLET PO (20:48)
[2019-08-27] MEDS: CYCLOBENZAPRINE HCL 5 MG TABLET PO (20:48)
[2019-08-27 22:00] VITALS: BP 164/91; PULSE 93; RESP 17; TEMP 36.7; O2SAT 100
[2019-08-28 05:07] LABS: Potassium 4.7 mmol/L (3.4-5.0)
[2019-08-28 06:00] VITALS: BP 160/81; PULSE 90; RESP 18; TEMP 36.6; O2SAT 99
[2019-08-28] MEDS: POTASSIUM CHLORIDE 20 MEQ PACKET (FOR LIQUID) PO (08:27)
[2019-08-28 08:29] VITALS: PULSE 90
[2019-08-28] MEDS: ASPIRIN 325 MG TABLET PO (08:29)
[2019-08-28] MEDS: carvediloL 3.125 MG TABLET PO ×2 (08:29→20:39)
[2019-08-28] MEDS: ATORVASTATIN 40 MG TABLET 80 MG PO (08:29)
[2019-08-28] MEDS: AMITRIPTYLINE HCL 25 MG TABLET PO ×2 (08:29→17:15)
[2019-08-28] MEDS: MEGESTROL ACETATE (*CHEMO) ORAL SUSP 40 MG/ML SYR 400 MG PO ×2 (08:30→17:15)
[2019-08-28] MEDS: SPIRONOLACTONE 25 MG TABLET PO (08:30)
[2019-08-28] MEDS: ENOXAPARIN 40 MG/0.4 ML SYRINGE SUB-Q (08:30)
[2019-08-28] MEDS: FUROSEMIDE 10 MG TABLET PO (10:50)
[2019-08-28 14:00] VITALS: BP 144/89; PULSE 100; RESP 20; TEMP 36.8; O2SAT 99
[2019-08-28] MEDS: CYCLOBENZAPRINE HCL 5 MG TABLET PO (14:09)
--- NOTE | 2019-08-28 16:07 | WPDNEURORHBP ---
Subjective Date/time seen: 08/28/19 16:07 Interval history: this 63-year-old Afro [place] woman who is diabetic and hypertensive is here after having had significant left hemispheric stroke with right-sided hemiplegia her speech defect is getting better she is following few simple commands does not have any dysphagia does not complain of headache nausea vomiting chest pain or shortness of breath Review of Systems Review of Systems: All systems reviewed & are unremarkable except as noted in HPI and below Functional Status Ambulation Ability Ability to Ambulate 10 Feet: Moderate Assistance X 1 Ambulation Assistive Devices: Railings Transfers Ability Ability to Transfer In/Out of Chair: Moderate Assistance X 1 Exam Const: General: comfortable and no acute distress HENMT: General nose exam: Normal nares present Mouth: Yes moist mucous membranes Eyes: General: appearance normal, both eyes and all related structures Neck: Neck: supple and no JVD Resp: Effort & Inspection: normal respiratory effort Auscultation: clear to auscultation bilaterally Cardio: Rate: regular rate Rhythm: regular rhythm GI: GI Palp: Yes Soft to palpation Auscultation: normal bowel sounds Skin: General skin exam: normal color and no rashes or lesions noted Neuro: Other: aphasia is improving right-sided hemiplegia is stable Extrem: General: normal to inspection Psych: Other: patient is jovial and seems cheerful and happy does not seem to be depressed or anxious or belligerent Objective Data Vital Signs Vital Signs: Vital Signs - 24 hr 08/27/19 20:48 08/27/19 22:00 08/28/19 06:00 Temperature 36.7 C 36.6 C Pulse Rate 90 93 90 Respiratory Rate 17 18 Blood Pressure 164/91 H 160/81 H Pulse Oximetry 100 99 08/28/19 08:29 08/28/19 14:00 Temperature 36.8 C Pulse Rate 90 100 Respiratory Rate 20 Blood Pressure 144/89 H Pulse Oximetry 99 Intake/Output Intake/Output: Intake & Output 08/25/19 08/26/19 08/27/19 08/28/19 23:59 23:59 23:59 23:59 Intake Total 262 999 6867 720 Balance 833 258 5248 720 Meds/Results Medications: Active Medications Generic Name Dose Route Start Last Admin Trade Name Freq PRN Reason Stop Dose Admin Amitriptyline HCl 25 mg 08/21/19 17:00 08/28/19 08:29 Elavil PO 25 mg BID CYRIL Administration Aspirin 325 mg 08/22/19 09:00 08/28/19 08:29 Aspirin PO 325 mg DAILY CYRIL Administration Atorvastatin Calcium 80 mg 08/22/19 09:00 08/28/19 08:29 Lipitor PO 80 mg DAILY CYRIL Administration Carvedilol 3.125 mg 08/21/19 21:00 08/28/19 08:29 Coreg PO 3.125 mg Q12HR CYRIL Administration Cyclobenzaprine HCl 5 mg 08/24/19 18:18 08/28/19 14:09 Flexeril PO 5 mg Q8H PRN Administration Muscle Spasm Enoxaparin Sodium 40 mg 08/23/19 09:00 08/28/19 08:30 Lovenox SUB-Q 40 mg DAILY CYRIL Administration Furosemide 10 mg 08/22/19 09:00 08/28/19 10:50 Lasix Tablet PO 10 mg DAILY CYRIL Administration Megestrol Acetate 400 mg 08/24/19 09:00 08/28/19 08:30 Megace Oral Susp PO 400 mg BID CYRIL Administration Melatonin 5 mg 08/24/19 21:00 08/27/19 20:48 Melatonin PO 5 mg HS CYRIL Administration Montelukast Sodium 10 mg 08/21/19 18:00 08/27/19 18:29 Singulair PO 10 mg QPM CYRIL Administration Potassium Chloride 20 meq 08/22/19 09:00 08/28/19 08:27 Kcl Powder (For Liquid) PO 20 meq DAILY CYRIL Administration Sodium Chloride 1 spray 08/22/19 01:56 08/22/19 02:19 [place] Nasal [place] NASAL 1 spray Q6HR PRN Administration Congestion Spironolactone 25 mg 08/22/19 09:00 08/28/19 08:30 Aldactone PO 25 mg DAILY CYRIL Administration Labs Labs: Laboratory Results - last 24 hr 08/28/19 04:37 Potassium 4.7 Progress Note: A&P Assessment and Plan (1) Right hemiplegia: Code(s): G81.91 - Hemiplegia, unspecified affecting right dominant side Status: u
[2019-08-28] MEDS: MONTELUKAST SODIUM 10 MG TABLET PO (17:15)
[2019-08-28 20:39] VITALS: PULSE 88
[2019-08-28] MEDS: MELATONIN 5 MG TABLET PO (20:40)
[2019-08-28 22:00] VITALS: BP 156/82; PULSE 88; RESP 17; TEMP 36.6; O2SAT 100
[2019-08-29 05:15] LABS: Basophils Absolute Auto 0.1 K/mm3 (0.0-0.1); Basophils Percent Auto 0.5 % (0.2-1.2); Eosinophils Absolute Auto 0.2 K/mm3 (0-0.3); Eosinophils Percent Auto 1.6 % (0-4.4); Hematocrit 44.6 % (37.0-47.0); Hemoglobin 14.4 g/dL (12.0-15.0); Immature Granulocyte Absolute 0.02 K/mm3 (0.00-0.031); Immature Granulocyte Percent A 0.2 % (0-0.5); Lymphocytes Absolute Auto 2.61 K/mm3 (0.9-3.2); Lymphocytes Percent Auto 27.2 % (18.3-44.2); Mean Corpuscular HGB Conc 32.3 g/dl (32-36); Mean Corpuscular Volume 83.5 fl (80-100); Mean Platelet Volume 10.5 fl (7.4-10.4); Monocytes Absolute Auto 0.5 K/mm3 (0.1-0.6); Neutrophils Absolute Auto 6.3 K/mm3 (1.3-6.7); Neutrophils Percent Auto 65.5 % (45.5-73.1); Platelet Count Result 482 k/mm3 (150-375); Red Blood Count 5.34 M/mm3 (4.2-5.4); White Blood Count 9.6 K/mm3 (4.5-10.0)
[2019-08-29 05:29] LABS: Blood Urea Nitrogen 22 mg/dL (7-17); Calcium 10.5 mg/dL (8.4-10.2); Carbon Dioxide 24 mmol/L (22-30); Chloride 106 mmol/L (98-107); Estimated CRCL calculation 42 ml/min; Estimated Glomerular Filt Rate > 60; Glucose 113 mg/dL (65-105); Potassium 4.8 mmol/L (3.4-5.0); Sodium 137 mmol/L (137-145)
[2019-08-29 06:00] VITALS: BP 148/79; PULSE 74; RESP 18; TEMP 36.4; O2SAT 100
[2019-08-29 08:00] VITALS: PULSE 80; RESP 18; O2SAT 100
[2019-08-29] MEDS: ATORVASTATIN 40 MG TABLET 80 MG PO (10:08)
[2019-08-29] MEDS: POTASSIUM CHLORIDE 20 MEQ PACKET (FOR LIQUID) PO (10:08)
[2019-08-29] MEDS: SPIRONOLACTONE 25 MG TABLET PO (10:08)
[2019-08-29] MEDS: ASPIRIN 325 MG TABLET PO (10:08)
[2019-08-29] MEDS: ENOXAPARIN 40 MG/0.4 ML SYRINGE SUB-Q (10:09)
[2019-08-29] MEDS: MEGESTROL ACETATE (*CHEMO) ORAL SUSP 40 MG/ML SYR 400 MG PO ×2 (10:09→17:37)
[2019-08-29] MEDS: AMITRIPTYLINE HCL 25 MG TABLET PO ×2 (10:09→17:37)
[2019-08-29] MEDS: FUROSEMIDE 10 MG TABLET PO (10:09)
[2019-08-29 10:10] VITALS: PULSE 80
[2019-08-29] MEDS: carvediloL 3.125 MG TABLET PO ×2 (10:10→19:47)
--- NOTE | 2019-08-29 12:18 | WPDNEURORHBP ---
Subjective Date/time seen: S/pLeft hemispheric stroke with right hemiplegia and aphasia improving with no signs of [id number]/23/20 12:18 Review of Systems Review of Systems: All systems reviewed & are unremarkable except as noted in HPI and below Functional Status Ambulation Ability Ability to Ambulate 10 Feet: Moderate Assistance X 1 Ambulation Assistive Devices: Railings Transfers Ability Ability to Transfer In/Out of Chair: Moderate Assistance X 1 Exam Const: General: cooperative, comfortable, no acute distress, alert, awake and Physically active Nutritional Appearance: average body habitus and thin Orientation/consciousness: oriented to person and oriented to place Limitations: language barrier HENMT: Head: normal to inspection General nose exam: No nasal discharge present Mouth: Yes Normal oral and palatal mucosa present Eyes: General: appearance normal, both eyes and all related structures Neck: Neck: full ROM Resp: Effort & Inspection: normal respiratory effort Auscultation: clear to auscultation bilaterally Cardio: Rate: regular rate Rhythm: regular rhythm GI: Auscultation: normal bowel sounds Skin: General skin exam: no rashes or lesions noted Neuro: General: oriented to person and oriented to place Speech: Global aphasia present Gait exam (Neuro): Unable to assess gait Motor exam (neuro): Abnormal motor strength present (right hemiplegia) Sensory Exam: Sensory deficit (Neuro) Deep tendon reflexes (DTR's): Right triceps reflex intensity grade: 2+, Left triceps reflex intensity grade: 1+, Rt Biceps (C5, C6): 2+, Left biceps reflex intensity grade: 1+, Right brachioradialis reflex intensity grade: 2+, Left brachioradialis reflex intensity grade: 1+, Right patellar reflex intensity grade: 2+, Left patellar reflex intensity grade: 1+, Right ankle reflex intensity grade: 2+ and Left ankle reflex intensity grade: 1+ Plantar Reflex Responses: downgoing: left and upgoing (positive Babinski): right Extrem: General: normal to inspection Psych: Affect: normal affect Attitude: cooperative Objective Data Vital Signs Vital Signs: Vital Signs - 24 hr 08/28/19 14:00 08/28/19 20:39 08/28/19 22:00 Temperature 36.8 C 36.6 C Pulse Rate 100 88 88 Respiratory Rate 20 17 Blood Pressure 144/89 H 156/82 H Pulse Oximetry 99 100 08/29/19 06:00 08/29/19 08:00 08/29/19 10:10 Temperature 36.4 C Pulse Rate 74 80 80 Respiratory Rate 18 18 Blood Pressure 148/79 H Pulse Oximetry 100 100 Intake/Output Intake/Output: Intake & Output 08/26/19 08/27/19 08/28/19 08/29/19 23:59 23:59 23:59 23:59 Intake Total 240 1320 1080 120 Balance 240 1320 1080 120 Meds/Results Medications: Active Medications Generic Name Dose Route Start Last Admin Trade Name Freq PRN Reason Stop Dose Admin Amitriptyline HCl 25 mg 08/21/19 17:00 08/29/19 10:09 Elavil PO 25 mg BID CYRIL Administration Aspirin 325 mg 08/22/19 09:00 08/29/19 10:08 Aspirin PO 325 mg DAILY CYRIL Administration Atorvastatin Calcium 80 mg 08/22/19 09:00 08/29/19 10:08 Lipitor PO 80 mg DAILY CYRIL Administration Carvedilol 3.125 mg 08/21/19 21:00 08/29/19 10:10 Coreg PO 3.125 mg Q12HR CYRIL Administration Cyclobenzaprine HCl 5 mg 08/24/19 18:18 08/28/19 14:09 Flexeril PO 5 mg Q8H PRN Administration Muscle Spasm Enoxaparin Sodium 40 mg 08/23/19 09:00 08/29/19 10:09 Lovenox SUB-Q 40 mg DAILY CYRIL Administration Furosemide 10 mg 08/22/19 09:00 08/29/19 10:09 Lasix Tablet PO 10 mg DAILY CYRIL Administration Megestrol Acetate 400 mg 08/24/19 09:00 08/29/19 10:09 Megace Oral Susp PO 400 mg BID CYRIL Administration Melatonin 5 mg 08/24/19 21:00 08/28/19 20:40 Melatonin PO 5 mg HS CYRIL Administration Montelukast Sodium 10 mg 08/21/19 18:00 08/28/19 17:15 Singulair PO 10 mg QPM CYRIL Administration Potassium Chloride 20 meq 08/22/19 0
[2019-08-29 14:00] VITALS: BP 158/82; PULSE 86; RESP 20; TEMP 36.4; O2SAT 99
[2019-08-29] MEDS: MONTELUKAST SODIUM 10 MG TABLET PO (17:37)
[2019-08-29 19:47] VITALS: PULSE 88
[2019-08-29] MEDS: MELATONIN 5 MG TABLET PO (19:48)
[2019-08-29 22:00] VITALS: BP 130/70; PULSE 82; RESP 16; TEMP 36.5; O2SAT 99
[2019-08-30 05:08] LABS: Potassium 4.6 mmol/L (3.4-5.0)
[2019-08-30 06:00] VITALS: BP 122/75; PULSE 100; RESP 18; TEMP 36.6; O2SAT 100
[2019-08-30] MEDS: ENOXAPARIN 40 MG/0.4 ML SYRINGE SUB-Q (09:56)
[2019-08-30] MEDS: MEGESTROL ACETATE (*CHEMO) ORAL SUSP 40 MG/ML SYR 400 MG PO ×2 (09:56→17:23)
[2019-08-30 09:57] VITALS: PULSE 80
[2019-08-30] MEDS: ASPIRIN 325 MG TABLET PO (09:57)
[2019-08-30] MEDS: FUROSEMIDE 10 MG TABLET PO (09:57)
[2019-08-30] MEDS: ATORVASTATIN 40 MG TABLET 80 MG PO (09:57)
[2019-08-30] MEDS: SPIRONOLACTONE 25 MG TABLET PO (09:57)
[2019-08-30] MEDS: POTASSIUM CHLORIDE 20 MEQ PACKET (FOR LIQUID) PO (09:57)
[2019-08-30] MEDS: carvediloL 3.125 MG TABLET PO ×2 (09:57→20:48)
[2019-08-30] MEDS: AMITRIPTYLINE HCL 25 MG TABLET PO ×2 (09:59→17:23)
[2019-08-30 14:00] VITALS: BP 146/72; PULSE 88; RESP 18; TEMP 36.2; O2SAT 97
[2019-08-30] MEDS: MONTELUKAST SODIUM 10 MG TABLET PO (17:23)
[2019-08-30 20:00] VITALS: PULSE 87; RESP 16; O2SAT 100
[2019-08-30 20:48] VITALS: PULSE 70
[2019-08-30] MEDS: MELATONIN 5 MG TABLET PO (20:48)
[2019-08-30 22:00] VITALS: BP 139/89; PULSE 87; RESP 16; TEMP 36.8; O2SAT 100
[2019-08-31] MEDS: CYCLOBENZAPRINE HCL 5 MG TABLET PO ×2 (00:08→18:04)
[2019-08-31 06:00] VITALS: BP 135/80; PULSE 84; RESP 18; TEMP 36.9; O2SAT 100
[2019-08-31] MEDS: ATORVASTATIN 40 MG TABLET 80 MG PO (08:40)
[2019-08-31] MEDS: ENOXAPARIN 40 MG/0.4 ML SYRINGE SUB-Q (08:40)
[2019-08-31] MEDS: ASPIRIN 325 MG TABLET PO (08:40)
[2019-08-31] MEDS: FUROSEMIDE 10 MG TABLET PO (08:40)
[2019-08-31] MEDS: carvediloL 3.125 MG TABLET PO ×2 (08:40→20:35)
[2019-08-31] MEDS: AMITRIPTYLINE HCL 25 MG TABLET PO ×2 (08:40→17:09)
[2019-08-31] MEDS: MEGESTROL ACETATE (*CHEMO) ORAL SUSP 40 MG/ML SYR 400 MG PO ×2 (08:40→17:09)
[2019-08-31] MEDS: SPIRONOLACTONE 25 MG TABLET PO (08:40)
[2019-08-31] MEDS: POTASSIUM CHLORIDE 20 MEQ PACKET (FOR LIQUID) PO (08:41)
[2019-08-31 08:45] VITALS: BP 125/89; PULSE 91
[2019-08-31 14:00] VITALS: BP 135/79; PULSE 93; RESP 20; TEMP 36.9; O2SAT 96
--- NOTE | 2019-08-31 16:23 | WPDNEURORHBP ---
Subjective Date/time seen: left hemispheric stroke with right hemiparesis and aphasia 08/31/19 16:23 Review of Systems Review of Systems: All systems reviewed & are unremarkable except as noted in HPI and below Functional Status Ambulation Ability Ability to Ambulate 10 Feet: Moderate Assistance X 1 Ambulation Assistive Devices: Parallel Bars Transfers Ability Ability to Transfer In/Out of Chair: Minimum Assistance X 1 Exam Const: General: cooperative, comfortable and no acute distress HENMT: Head: normal to inspection Eyes: General: appearance normal, both eyes and all related structures Neck: Neck: full ROM Resp: Effort & Inspection: normal respiratory effort Auscultation: clear to auscultation bilaterally Cardio: Rate: regular rate Rhythm: regular rhythm GI: Percussion: Yes normal to percussion Auscultation: normal bowel sounds Skin: General skin exam: no rashes or lesions noted Neuro: General: oriented to person, oriented to place and moves all extremities Cranial nerves: Yes Equal, round and reactive pupils present Speech: Global aphasia present Motor exam (neuro): Abnormal motor strength present (righthemiplegia) Psych: Appearance: grossly normal Objective Data Vital Signs Vital Signs: Vital Signs - 24 hr 08/30/19 20:00 08/30/19 20:48 08/30/19 22:00 Temperature 36.8 C Pulse Rate 87 70 87 Respiratory Rate 16 16 Blood Pressure 139/89 Pulse Oximetry 100 100 08/31/19 06:00 08/31/19 08:45 08/31/19 14:00 Temperature 36.9 C 36.9 C Pulse Rate 84 91 93 Respiratory Rate 18 20 Blood Pressure 135/80 125/89 135/79 Pulse Oximetry 100 96 Intake/Output Intake/Output: Intake & Output 08/28/19 08/29/19 08/30/19 08/31/19 23:59 23:59 23:59 23:59 Intake Total 1080 360 480 480 Balance 1080 360 480 480 Meds/Results Medications: Active Medications Generic Name Dose Route Start Last Admin Trade Name Freq PRN Reason Stop Dose Admin Amitriptyline HCl 25 mg 08/21/19 17:00 08/31/19 08:40 Elavil PO 25 mg BID CYRIL Administration Aspirin 325 mg 08/22/19 09:00 08/31/19 08:40 Aspirin PO 325 mg DAILY CYRIL Administration Atorvastatin Calcium 80 mg 08/22/19 09:00 08/31/19 08:40 Lipitor PO 80 mg DAILY CYRIL Administration Carvedilol 3.125 mg 08/21/19 21:00 08/31/19 08:40 Coreg PO 3.125 mg Q12HR CYRIL Administration Cyclobenzaprine HCl 5 mg 08/24/19 18:18 08/31/19 00:08 Flexeril PO 5 mg Q8H PRN Administration Muscle Spasm Enoxaparin Sodium 40 mg 08/23/19 09:00 08/31/19 08:40 Lovenox SUB-Q 40 mg DAILY CYRIL Administration Furosemide 10 mg 08/22/19 09:00 08/31/19 08:40 Lasix Tablet PO 10 mg DAILY CYRIL Administration Megestrol Acetate 400 mg 08/24/19 09:00 08/31/19 08:40 Megace Oral Susp PO 400 mg BID CYRIL Administration Melatonin 5 mg 08/24/19 21:00 08/30/19 20:48 Melatonin PO 5 mg HS CYRIL Administration Montelukast Sodium 10 mg 08/21/19 18:00 08/30/19 17:23 Singulair PO 10 mg QPM CYRIL Administration Potassium Chloride 20 meq 08/22/19 09:00 08/31/19 08:41 Kcl Powder (For Liquid) PO 20 meq DAILY CYRIL Administration Sodium Chloride 1 spray 08/22/19 01:56 08/22/19 02:19 [place] Nasal [place] NASAL 1 spray Q6HR PRN Administration Congestion Spironolactone 25 mg 08/22/19 09:00 08/31/19 08:40 Aldactone PO 25 mg DAILY CYRIL Administration Progress Note: A&P Assessment and Plan (1) Right hemiplegia: Code(s): G81.91 - Hemiplegia, unspecified affecting right dominant side Status: Acute (2) Aphasia: Code(s): R47.01 - Aphasia Status: Acute (3) Anorexia: Code(s): R63.0 - Anorexia Status: Acute (4) History of stroke: Code(s): Z86.73 - Personal history of transient ischemic attack (TIA), and cerebral infarction without residual deficits Status: Acute (5) Hypertension: Code(s): I10 -
[2019-08-31] MEDS: MONTELUKAST SODIUM 10 MG TABLET PO (17:10)
[2019-08-31 20:35] VITALS: PULSE 88
[2019-08-31] MEDS: MELATONIN 5 MG TABLET PO (20:35)
[2019-08-31 22:00] VITALS: BP 145/82; PULSE 52; RESP 18; TEMP 36.6; O2SAT 100
[2019-09-01] MEDS: CYCLOBENZAPRINE HCL 5 MG TABLET PO (00:26)
[2019-09-01 06:00] VITALS: BP 148/87; PULSE 87; RESP 19; TEMP 36.3; O2SAT 99
[2019-09-01] MEDS: ATORVASTATIN 40 MG TABLET 80 MG PO (08:21)
[2019-09-01] MEDS: ASPIRIN 325 MG TABLET PO (08:21)
[2019-09-01 08:22] VITALS: PULSE 87
[2019-09-01] MEDS: carvediloL 3.125 MG TABLET PO ×2 (08:22→20:11)
[2019-09-01] MEDS: ENOXAPARIN 40 MG/0.4 ML SYRINGE SUB-Q (08:22)
[2019-09-01] MEDS: MEGESTROL ACETATE (*CHEMO) ORAL SUSP 40 MG/ML SYR 400 MG PO ×2 (08:23→17:42)
[2019-09-01] MEDS: POTASSIUM CHLORIDE 20 MEQ PACKET (FOR LIQUID) PO (08:23)
[2019-09-01] MEDS: FUROSEMIDE 10 MG TABLET PO (08:23)
[2019-09-01] MEDS: AMITRIPTYLINE HCL 25 MG TABLET PO ×2 (08:23→17:41)
[2019-09-01] MEDS: SPIRONOLACTONE 25 MG TABLET PO (08:24)
--- NOTE | 2019-09-01 13:32 | PCDIET ---
Nutrition Follow-Up Complete: Nutrition Diagnosis: Suboptimal oral intake related to decreased appetite as evidenced by average intake of 27% of meals since admission. Nutrition Goal: Patient to consume 50% of meals/supplements or more. Goal met. Intakes averaged 53% of meals since 08/28/19. Diet is 2 gram sodium, minced and moist, which is appropriate, as tolerated. Patient also continues to take Ensure Compact TID. Last recorded weight is 48.4 kg. Recommend obtaining new weight. Bowel Motility: Small BM reported on 08/31/19. Labs Reviewed: Glu (113), Ca (10.5) Meds Noted: Lasix, Megace, KCl, Aldactone Additional Notes: Recommend rechecking calcium to ensure accurate. Level was 9.7mg/dL on admission. Left buttock macerated. No other skin issues documented. Will continue to monitor with same goals. Nutrition Monitoring and Evaluation: Follow up in 5 days.
--- NOTE | 2019-09-01 13:42 | WPDNEURORHBP ---
Subjective Date/time seen: 09/01/19 13:42 Interval history: this 63-year-old woman is here having after left hemispheric stroke she is having bladder incontinence for which a bladder training will be initiated she also has a event monitor and that will be evaluated by the other team from where she came from. She is improving her speech to little bit however the hemiplegia is going rather slowly As best I could determine she is not any pain and distress particularly denies any headache nausea vomiting chest pain shortness of breath fever chills or sore throat Review of Systems Review of Systems: All systems reviewed & are unremarkable except as noted in HPI and below Functional Status Ambulation Ability Ability to Ambulate 10 Feet: Maximum Assistance X 1 Ambulation Assistive Devices: Railings Transfers Ability Ability to Transfer In/Out of Chair: Maximum Assistance X 1 Exam Const: General: comfortable and no acute distress HENMT: General nose exam: Normal nares present Mouth: Yes moist mucous membranes Eyes: General: appearance normal, both eyes and all related structures Neck: Neck: supple and no JVD Resp: Effort & Inspection: normal respiratory effort Auscultation: clear to auscultation bilaterally Cardio: Rate: regular rate Rhythm: regular rhythm GI: GI Palp: Yes Soft to palpation Auscultation: normal bowel sounds Skin: General skin exam: normal color and no rashes or lesions noted Neuro: Other: patient is awake and alert follow some commands she is neither depressed or crying she is little impulsive and thrashes around she is completely aphasic and the right-sided hemiplegia is roughly about the same Extrem: General: normal to inspection Psych: Other: completely aphasic Objective Data Vital Signs Vital Signs: Vital Signs - 24 hr 08/31/19 14:00 08/31/19 20:35 08/31/19 22:00 Temperature 36.9 C 36.6 C Pulse Rate 93 88 52 L Respiratory Rate 20 18 Blood Pressure 135/79 145/82 H Pulse Oximetry 96 100 09/01/19 06:00 09/01/19 08:22 Temperature 36.3 C L Pulse Rate 87 87 Respiratory Rate 19 Blood Pressure 148/87 H Pulse Oximetry 99 Intake/Output Intake/Output: Intake & Output 08/29/19 08/30/19 08/31/19 09/01/19 23:59 23:59 23:59 23:59 Intake Total 360 480 720 360 Balance 360 480 720 360 Meds/Results Medications: Active Medications Generic Name Dose Route Start Last Admin Trade Name Freq PRN Reason Stop Dose Admin Amitriptyline HCl 25 mg 08/21/19 17:00 09/01/19 08:23 Elavil PO 25 mg BID CYRIL Administration Aspirin 325 mg 08/22/19 09:00 09/01/19 08:21 Aspirin PO 325 mg DAILY CYRIL Administration Atorvastatin Calcium 80 mg 08/22/19 09:00 09/01/19 08:21 Lipitor PO 80 mg DAILY CYRIL Administration Carvedilol 3.125 mg 08/21/19 21:00 09/01/19 08:22 Coreg PO 3.125 mg Q12HR CYRIL Administration Cyclobenzaprine HCl 5 mg 08/24/19 18:18 09/01/19 00:26 Flexeril PO 5 mg Q8H PRN Administration Muscle Spasm Enoxaparin Sodium 40 mg 08/23/19 09:00 09/01/19 08:22 Lovenox SUB-Q 40 mg DAILY CYRIL Administration Furosemide 10 mg 08/22/19 09:00 09/01/19 08:23 Lasix Tablet PO 10 mg DAILY CYRIL Administration Megestrol Acetate 400 mg 08/24/19 09:00 09/01/19 08:23 Megace Oral Susp PO 400 mg BID CYRIL Administration Melatonin 5 mg 08/24/19 21:00 08/31/19 20:35 Melatonin PO 5 mg HS CYRIL Administration Montelukast Sodium 10 mg 08/21/19 18:00 08/31/19 17:10 Singulair PO 10 mg QPM CYRIL Administration Potassium Chloride 20 meq 08/22/19 09:00 09/01/19 08:23 Kcl Powder (For Liquid) PO 20 meq DAILY CYRIL Administration Sodium Chloride 1 spray 08/22/19 01:56 08/22/19 02:19 [place] Nasal [place] NASAL 1 spray Q6HR PRN Administration Congestion Spironolactone 25 mg 08/22/19 09:00 09/01/19 08:24 Aldactone PO 25 mg DAILY CYRIL Administration Progress Note:
[2019-09-01 14:00] VITALS: BP 137/88; PULSE 98; RESP 18; TEMP 36.3; O2SAT 100
[2019-09-01] MEDS: MONTELUKAST SODIUM 10 MG TABLET PO (17:42)
[2019-09-01 20:11] VITALS: PULSE 88
[2019-09-01 22:00] VITALS: BP 148/90; PULSE 93; RESP 18; TEMP 36.6; O2SAT 100
[2019-09-01] MEDS: MELATONIN 5 MG TABLET PO (22:23)
[2019-09-02 06:00] VITALS: BP 119/79; PULSE 97; RESP 18; TEMP 36.7; O2SAT 100
[2019-09-02] MEDS: ASPIRIN 325 MG TABLET PO (08:37)
[2019-09-02] MEDS: ENOXAPARIN 40 MG/0.4 ML SYRINGE SUB-Q (08:37)
[2019-09-02] MEDS: MEGESTROL ACETATE (*CHEMO) ORAL SUSP 40 MG/ML SYR 400 MG PO ×2 (08:37→17:36)
[2019-09-02 08:38] VITALS: PULSE 97
[2019-09-02] MEDS: carvediloL 3.125 MG TABLET PO ×2 (08:38→20:46)
[2019-09-02] MEDS: FUROSEMIDE 10 MG TABLET PO (08:38)
[2019-09-02] MEDS: ATORVASTATIN 40 MG TABLET 80 MG PO (08:38)
[2019-09-02] MEDS: AMITRIPTYLINE HCL 25 MG TABLET PO ×2 (08:38→17:36)
[2019-09-02] MEDS: POTASSIUM CHLORIDE 20 MEQ PACKET (FOR LIQUID) PO (08:38)
[2019-09-02] MEDS: SPIRONOLACTONE 25 MG TABLET PO (08:38)
--- NOTE | 2019-09-02 13:10 | WPDNEURORHBP ---
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 the aphasia to certain degree is slowly improving however the hemiplegia is stable she denies any headache nausea vomiting chest pain shortness of breath fever chills or sore throat Review of Systems Review of Systems: All systems reviewed & are unremarkable except as noted in HPI and below Functional Status Ambulation Ability Ability to Ambulate 10 Feet: Maximum Assistance X 1 Ambulation Assistive Devices: Cane, Advid Transfers Ability Ability to Transfer In/Out of Chair: Moderate Assistance X 1 Exam Const: General: comfortable and no acute distress HENMT: General nose exam: Normal nares present Mouth: Yes moist mucous membranes Eyes: General: appearance normal, both eyes and all related structures Neck: Neck: supple and no JVD Resp: Effort & Inspection: normal respiratory effort Auscultation: clear to auscultation bilaterally Cardio: Rate: regular rate Rhythm: regular rhythm GI: GI Palp: Yes Soft to palpation Auscultation: normal bowel sounds Skin: General skin exam: normal color and no rashes or lesions noted Neuro: Other: patient is awake alert smiling follow simple commands however aphasic but some improvement aphasia and stable right hemiplegia Extrem: General: normal to inspection Psych: Other: pleasant does not look sad or depressed but aphasic Objective Data Vital Signs Vital Signs: Vital Signs - 24 hr 09/01/19 14:00 09/01/19 20:11 09/01/19 22:00 Temperature 36.3 C L 36.6 C Pulse Rate 98 88 93 Respiratory Rate 18 18 Blood Pressure 137/88 148/90 H Pulse Oximetry 100 100 09/02/19 06:00 09/02/19 08:38 Temperature 36.7 C Pulse Rate 97 97 Respiratory Rate 18 Blood Pressure 119/79 Pulse Oximetry 100 Intake/Output Intake/Output: Intake & Output 08/30/19 08/31/19 09/01/19 09/02/19 23:59 23:59 23:59 23:59 Intake Total 480 720 600 480 Balance 480 720 600 480 Meds/Results Medications: Active Medications Generic Name Dose Route Start Last Admin Trade Name Freq PRN Reason Stop Dose Admin Amitriptyline HCl 25 mg 08/21/19 17:00 09/02/19 08:38 Elavil PO 25 mg BID CYRIL Administration Aspirin 325 mg 08/22/19 09:00 09/02/19 08:37 Aspirin PO 325 mg DAILY CYRIL Administration Atorvastatin Calcium 80 mg 08/22/19 09:00 09/02/19 08:38 Lipitor PO 80 mg DAILY CYRIL Administration Carvedilol 3.125 mg 08/21/19 21:00 09/02/19 08:38 Coreg PO 3.125 mg Q12HR CYRIL Administration Cyclobenzaprine HCl 5 mg 08/24/19 18:18 09/01/19 00:26 Flexeril PO 5 mg Q8H PRN Administration Muscle Spasm Enoxaparin Sodium 40 mg 08/23/19 09:00 09/02/19 08:37 Lovenox SUB-Q 40 mg DAILY CYRIL Administration Furosemide 10 mg 08/22/19 09:00 09/02/19 08:38 Lasix Tablet PO 10 mg DAILY CYRIL Administration Megestrol Acetate 400 mg 08/24/19 09:00 09/02/19 08:37 Megace Oral Susp PO 400 mg BID CYRIL Administration Melatonin 5 mg 08/24/19 21:00 09/01/19 22:23 Melatonin PO 5 mg HS CYRIL Administration Montelukast Sodium 10 mg 08/21/19 18:00 09/01/19 17:42 Singulair PO 10 mg QPM CYRIL Administration Potassium Chloride 20 meq 08/22/19 09:00 09/02/19 08:38 Kcl Powder (For Liquid) PO 20 meq DAILY CYRIL Administration Sodium Chloride 1 spray 08/22/19 01:56 08/22/19 02:19 [place] Nasal [place] NASAL 1 spray Q6HR PRN Administration Congestion Spironolactone 25 mg 08/22/19 09:00 09/02/19 08:38 Aldactone PO 25 mg DAILY CYRIL Administration Progress Note: A&P Assessment and Plan (1) Right hemiplegia: Code(s): G81.91 - Hemiplegia, unspecified affecting right dominant side Status: Acute (2) Aphasia: Code(s): R47.01 - Aphasia Status: Acut
[2019-09-02 14:00] VITALS: BP 146/90; PULSE 103; RESP 17; TEMP 36.7; O2SAT 100
[2019-09-02] MEDS: MONTELUKAST SODIUM 10 MG TABLET PO (17:36)
[2019-09-02 20:46] VITALS: PULSE 92
[2019-09-02] MEDS: MELATONIN 5 MG TABLET PO (20:47)
[2019-09-02 22:00] VITALS: BP 151/86; PULSE 88; RESP 18; TEMP 37.1; O2SAT 100
[2019-09-03 08:00] VITALS: PULSE 88; RESP 18; O2SAT 100
[2019-09-03 08:18] VITALS: PULSE 88
[2019-09-03] MEDS: ASPIRIN 325 MG TABLET PO (08:18)
[2019-09-03] MEDS: ATORVASTATIN 40 MG TABLET 80 MG PO (08:18)
[2019-09-03] MEDS: carvediloL 3.125 MG TABLET PO ×2 (08:18→20:03)
[2019-09-03] MEDS: SPIRONOLACTONE 25 MG TABLET PO (08:19)
[2019-09-03] MEDS: FUROSEMIDE 10 MG TABLET PO (08:19)
[2019-09-03] MEDS: ENOXAPARIN 40 MG/0.4 ML SYRINGE SUB-Q (08:19)
[2019-09-03] MEDS: MEGESTROL ACETATE (*CHEMO) ORAL SUSP 40 MG/ML SYR 400 MG PO ×2 (08:19→16:31)
[2019-09-03] MEDS: AMITRIPTYLINE HCL 25 MG TABLET PO ×2 (08:19→16:32)
[2019-09-03] MEDS: POTASSIUM CHLORIDE 20 MEQ PACKET (FOR LIQUID) PO (08:19)
--- NOTE | 2019-09-03 10:07 | PCDIET ---
Nutrition Follow-Up Complete: Nutrition Diagnosis: Suboptimal oral intake related to decreased appetite as evidenced by average intake of 27% of meals since admission. Nutrition Goal: Patient to consume 50% of meals/supplements or more. Goal met. Intakes much improved with average of 72% of meals + Ensure Compact TID. Diet is 2g sodium, minced and moist. Last recorded weight is 48.4 kg. Recommend obtaining new weight. Bowel Motility: Last documented BM on 08/31/19. Labs Reviewed: No new chemistry available. Meds Noted: Lasix, Megace, KCl, Aldactone Additional Notes: Left buttock macerated. No documented pressure sores. Will continue to monitor with same goal. Nutrition Monitoring and Evaluation: Follow up in 7 days.
[2019-09-03 14:00] VITALS: BP 134/67; PULSE 94; RESP 18; TEMP 36.7; O2SAT 100
[2019-09-03] MEDS: MONTELUKAST SODIUM 10 MG TABLET PO (16:32)
[2019-09-03 20:00] VITALS: PULSE 80; RESP 20; O2SAT 100
[2019-09-03 20:03] VITALS: PULSE 80
[2019-09-03] MEDS: MELATONIN 5 MG TABLET PO (20:03)
--- NOTE | 2019-09-03 20:25 | ECG_ITS ---
Measurements Intervals [place] Rate: 95 P: 52 TN: 118 QRS: 32 QRSD: 100 T: 146 QT: 327 QTc: 411 Interpretive Statements SINUS RHYTHM WITH SHORT TN INTERVAL VENTRICULAR PREMATURE COMPLEX LEFT ATRIAL ENLARGEMENT LEFT VENTRICULAR HYPERTROPHY AND ST-T CHANGE BORDERLINE ST-T WAVE ABNORMALITY- DIFFUSE LEADS BORDERLINE ECG Electronically Signed On 09-04-2019 7:11:28 CDT by John Cohen D.O.
[2019-09-03] MEDS: ACETAMINOPHEN 500 MG TABLET 1000 MG PO (20:46)
[2019-09-03 22:00] VITALS: BP 142/84; PULSE 80; RESP 20; TEMP 36.3; O2SAT 100
[2019-09-04] VITALS (7 sets, daily range): BP systolic 136–140; BP diastolic 82–89; PULSE 76–99; RESP 18–20; TEMP 36.3–36.7; O2SAT 100
[2019-09-04] MEDS: FUROSEMIDE 10 MG TABLET PO (08:31)
[2019-09-04] MEDS: ENOXAPARIN 40 MG/0.4 ML SYRINGE SUB-Q (08:32)
[2019-09-04] MEDS: carvediloL 3.125 MG TABLET PO ×2 (08:32→20:52)
[2019-09-04] MEDS: ASPIRIN 325 MG TABLET PO (08:32)
[2019-09-04] MEDS: ATORVASTATIN 40 MG TABLET 80 MG PO (08:32)
[2019-09-04] MEDS: AMITRIPTYLINE HCL 25 MG TABLET PO ×2 (08:32→17:26)
[2019-09-04] MEDS: SPIRONOLACTONE 25 MG TABLET PO (08:33)
[2019-09-04] MEDS: POTASSIUM CHLORIDE 20 MEQ PACKET (FOR LIQUID) PO (08:33)
[2019-09-04] MEDS: MEGESTROL ACETATE (*CHEMO) ORAL SUSP 40 MG/ML SYR 400 MG PO ×2 (08:33→17:25)
--- NOTE | 2019-09-04 11:54 | WPDNEURORHBP ---
Subjective Date/time seen: 09/04/19 11:54 Interval history: this 63-year-old woman is here after having had significant left hemispheric stroke which has left her with aphasia and right-sided hemiplegia. Last night she complained of headaches however this morning again she is fine and laughing and smiling and does not seem to be any discomfort as best we can tell she does not have headache nausea vomiting chest pain shortness of breath fever chills or sore throat Review of Systems Review of Systems: All systems reviewed & are unremarkable except as noted in HPI and below Functional Status Ambulation Ability Ability to Ambulate 10 Feet: Maximum Assistance X 1 Ambulation Assistive Devices: Railings Transfers Ability Ability to Transfer In/Out of Chair: Moderate Assistance X 1 Exam Const: General: comfortable and no acute distress HENMT: General nose exam: Normal nares present Mouth: Yes moist mucous membranes Eyes: General: appearance normal, both eyes and all related structures Neck: Neck: supple and no JVD Resp: Effort & Inspection: normal respiratory effort Auscultation: clear to auscultation bilaterally Cardio: Rate: regular rate Rhythm: regular rhythm GI: GI Palp: Yes Soft to palpation Auscultation: normal bowel sounds Skin: General skin exam: normal color and no rashes or lesions noted Neuro: Other: the aphasia has some improvement and she is trying to make 2 words together able to follow simple commands however the right-sided hemiplegia is quite dense and has shown very little improvement Extrem: General: normal to inspection Psych: Other: patient is aphasic however does not have anxious affect and in fact has a normal affect and is not hallucinating or belligerent Objective Data Vital Signs Vital Signs: Vital Signs - 24 hr 09/03/19 14:00 09/03/19 20:00 09/03/19 20:03 Temperature 36.7 C Pulse Rate 94 80 80 Respiratory Rate 18 20 Blood Pressure 134/67 Pulse Oximetry 100 100 09/03/19 22:00 09/04/19 06:00 09/04/19 08:00 Temperature 36.3 C L 36.3 C L Pulse Rate 80 76 76 Respiratory Rate 20 18 18 Blood Pressure 142/84 H 138/82 Pulse Oximetry 100 100 100 09/04/19 08:32 Temperature Pulse Rate 76 Respiratory Rate Blood Pressure Pulse Oximetry Intake/Output Intake/Output: Intake & Output 05/2609/02/19 09/03/19 09/04/19 23:59 23:59 23:59 23:59 Intake Total 600 1040 1320 240 Balance 600 1040 1320 240 Meds/Results Medications: Active Medications Generic Name Dose Route Start Last Admin Trade Name Freq PRN Reason Stop Dose Admin Acetaminophen 1,000 mg 09/03/19 20:24 09/03/19 20:46 Tylenol Tablet PO 1,000 mg Q6H PRN Administration Mild Pain (1-3) or Fever Amitriptyline HCl 25 mg 08/21/19 17:00 09/04/19 08:32 Elavil PO 25 mg BID YCRIL Administration Aspirin 325 mg 08/22/19 09:00 09/04/19 08:32 Aspirin PO 325 mg DAILY CYRIL Administration Atorvastatin Calcium 80 mg 08/22/19 09:00 09/04/19 08:32 Lipitor PO 80 mg DAILY CYRIL Administration Carvedilol 3.125 mg 08/21/19 21:00 09/04/19 08:32 Coreg PO 3.125 mg Q12HR CYRIL Administration Cyclobenzaprine HCl 5 mg 08/24/19 18:18 09/01/19 00:26 Flexeril PO 5 mg Q8H PRN Administration Muscle Spasm Enoxaparin Sodium 40 mg 08/23/19 09:00 09/04/19 08:32 Lovenox SUB-Q 40 mg DAILY CYRIL Administration Furosemide 10 mg 08/22/19 09:00 09/04/19 08:31 Lasix Tablet PO 10 mg DAILY CYRIL Administration Megestrol Acetate 400 mg 08/24/19 09:00 09/04/19 08:33 Megace Oral Susp PO 400 mg BID CYRIL Administration Melatonin 5 mg 08/24/19 21:00 09/03/19 20:03 Melatonin PO 5 mg HS CYRIL Administration Montelukast Sodium 10 mg 08/21/19 18:00 09/03/19 16:32 Singulair PO 10 mg QPM CYRIL Administration Potassium Chloride 20 meq 08/22/19 09:00 09/04/19 08:33 Kcl Powder (For Liquid) PO 20 meq DAILY CYRIL Admi
[2019-09-04] MEDS: ACETAMINOPHEN 500 MG TABLET 1000 MG PO ×2 (14:20→23:10)
[2019-09-04] MEDS: CYCLOBENZAPRINE HCL 5 MG TABLET PO ×2 (17:25→23:10)
[2019-09-04] MEDS: MONTELUKAST SODIUM 10 MG TABLET PO (17:26)
[2019-09-04] MEDS: MELATONIN 5 MG TABLET PO (20:52)
[2019-09-05] VITALS (8 sets, daily range): BP systolic 109–173; BP diastolic 74–86; PULSE 78–109; RESP 18–20; TEMP 36.3–36.8; O2SAT 95–100
[2019-09-05 05:26] LABS: Basophils Absolute Auto 0.1 K/mm3 (0.0-0.1); Basophils Percent Auto 0.6 % (0.2-1.2); Eosinophils Absolute Auto 0.3 K/mm3 (0-0.3); Eosinophils Percent Auto 2.9 % (0-4.4); Hematocrit 42.5 % (37.0-47.0); Hemoglobin 13.8 g/dL (12.0-15.0); Immature Granulocyte Absolute 0.04 K/mm3 (0.00-0.031); Immature Granulocyte Percent A 0.4 % (0-0.5); Lymphocytes Absolute Auto 2.83 K/mm3 (0.9-3.2); Lymphocytes Percent Auto 30.1 % (18.3-44.2); Mean Corpuscular HGB Conc 32.5 g/dl (32-36); Mean Corpuscular Hemoglobin 26.4 pg (26-34); Mean Corpuscular Volume 81.4 fl (80-100); Mean Platelet Volume 9.8 fl (7.4-10.4); Monocytes Absolute Auto 0.4 K/mm3 (0.1-0.6); Monocytes Percent Auto 4.5 % (2.6-8.5); Neutrophils Absolute Auto 5.8 K/mm3 (1.3-6.7); Neutrophils Percent Auto 61.5 % (45.5-73.1); Platelet Count Result 404 k/mm3 (150-375); Red Blood Count 5.22 M/mm3 (4.2-5.4); Red Cell Distribution Width 13.8 % (11.5-14.5); White Blood Count 9.4 K/mm3 (4.5-10.0)
[2019-09-05 05:41] LABS: Blood Urea Nitrogen 31 mg/dL (7-17); Calcium 9.9 mg/dL (8.4-10.2); Carbon Dioxide 22 mmol/L (22-30); Chloride 103 mmol/L (98-107); Estimated CRCL calculation 35 ml/min; Estimated Glomerular Filt Rate 60; Glucose 107 mg/dL (65-105); Potassium 4.6 mmol/L (3.4-5.0); Sodium 136 mmol/L (137-145)
[2019-09-05] MEDS: MEGESTROL ACETATE (*CHEMO) ORAL SUSP 40 MG/ML SYR 400 MG PO ×2 (09:42→18:00)
[2019-09-05] MEDS: ENOXAPARIN 40 MG/0.4 ML SYRINGE SUB-Q (09:42)
[2019-09-05] MEDS: ATORVASTATIN 40 MG TABLET 80 MG PO (09:42)
[2019-09-05] MEDS: carvediloL 3.125 MG TABLET PO ×2 (09:43→20:53)
[2019-09-05] MEDS: FUROSEMIDE 10 MG TABLET PO (09:43)
[2019-09-05] MEDS: SPIRONOLACTONE 25 MG TABLET PO (09:43)
[2019-09-05] MEDS: ASPIRIN 325 MG TABLET PO (09:43)
[2019-09-05] MEDS: AMITRIPTYLINE HCL 25 MG TABLET PO ×2 (09:43→18:00)
[2019-09-05] MEDS: POTASSIUM CHLORIDE 20 MEQ PACKET (FOR LIQUID) PO (09:44)
--- NOTE | 2019-09-05 15:40 | WPDNEURORHBP ---
Subjective Date/time seen: 09/05/19 15:40 Interval history: this 63-year-old Afro [place] woman is recuperating in over rehab floor after having had rather significant stroke to her left cerebral hemisphere which has left her with aphasia and right-sided hemiplegia she still has jargon speech but trying to put 2 words together unable to follow commands the hemiplegia is stable she still needing significant assistance in the activities of daily living she does not seem to be any distress denies any headache nausea vomiting chest pain shortness of breath fever chills or sore throat as best we can determine Review of Systems Review of Systems: All systems reviewed & are unremarkable except as noted in HPI and below Functional Status Ambulation Ability Ability to Ambulate 10 Feet: Maximum Assistance X 1 Ambulation Assistive Devices: Railings Transfers Ability Ability to Transfer In/Out of Chair: Moderate Assistance X 1 Exam Const: General: comfortable and no acute distress HENMT: General nose exam: Normal nares present Mouth: Yes moist mucous membranes Eyes: General: appearance normal, both eyes and all related structures Neck: Neck: supple and no JVD Resp: Effort & Inspection: normal respiratory effort Auscultation: clear to auscultation bilaterally Cardio: Rate: regular rate Rhythm: regular rhythm GI: GI Palp: Yes Soft to palpation Auscultation: normal bowel sounds Skin: General skin exam: normal color and no rashes or lesions noted Neuro: Other: aphasia is still significant but she is able to follow few commands right-sided hemiplegia is roughly about the same made some progress but still needing significant assistance in all the activities of daily living Extrem: General: normal to inspection Psych: Other: remain is aphasic but pleasant and [place] time cooperative Objective Data Vital Signs Vital Signs: Vital Signs - 24 hr 09/04/19 20:00 09/04/19 20:52 09/04/19 22:00 Temperature 36.7 C Pulse Rate 99 99 99 Respiratory Rate 20 20 Blood Pressure 140/89 Pulse Oximetry 100 100 09/05/19 06:00 09/05/19 08:00 09/05/19 09:43 Temperature 36.8 C Pulse Rate 98 90 96 Respiratory Rate 20 20 Blood Pressure 109/77 Pulse Oximetry 100 98 Intake/Output Intake/Output: Intake & Output 09/02/19 09/03/19 09/04/19 09/05/19 23:59 23:59 23:59 23:59 Intake Total 1040 1320 720 360 Balance 1040 1320 720 360 Meds/Results Medications: Active Medications Generic Name Dose Route Start Last Admin Trade Name Freq PRN Reason Stop Dose Admin Acetaminophen 1,000 mg 09/03/19 20:24 09/04/19 23:10 Tylenol Tablet PO 1,000 mg Q6H PRN Administration Mild Pain (1-3) or Fever Amitriptyline HCl 25 mg 08/21/19 17:00 09/05/19 09:43 Elavil PO 25 mg BID CYRIL Administration Aspirin 325 mg 08/22/19 09:00 09/05/19 09:43 Aspirin PO 325 mg DAILY CYRIL Administration Atorvastatin Calcium 80 mg 08/22/19 09:00 09/05/19 09:42 Lipitor PO 80 mg DAILY CYRIL Administration Carvedilol 3.125 mg 08/21/19 21:00 09/05/19 09:43 Coreg PO 3.125 mg Q12HR CYRIL Administration Cyclobenzaprine HCl 5 mg 08/24/19 18:18 09/04/19 23:10 Flexeril PO 5 mg Q8H PRN Administration Muscle Spasm Enoxaparin Sodium 40 mg 08/23/19 09:00 09/05/19 09:42 Lovenox SUB-Q 40 mg DAILY CYRIL Administration Furosemide 10 mg 08/22/19 09:00 09/05/19 09:43 Lasix Tablet PO 10 mg DAILY CYRIL Administration Megestrol Acetate 400 mg 08/24/19 09:00 09/05/19 09:42 Megace Oral Susp PO 400 mg BID CYRIL Administration Melatonin 5 mg 08/24/19 21:00 09/04/19 20:52 Melatonin PO 5 mg HS CYRIL Administration Montelukast Sodium 10 mg 08/21/19 18:00 09/04/19 17:26 Singulair PO 10 mg QPM CYRIL Administration Potassium Chloride 20 meq 08/22/19 09:00 09/05/19 09:44 Kcl Powder (For Liquid) PO 20 meq DAILY CYRIL Administration Sodium Chloride
[2019-09-05] MEDS: MONTELUKAST SODIUM 10 MG TABLET PO (18:00)
[2019-09-05] MEDS: MELATONIN 5 MG TABLET PO (20:53)
[2019-09-05] MEDS: CYCLOBENZAPRINE HCL 5 MG TABLET PO (21:37)
[2019-09-05] MEDS: ACETAMINOPHEN 500 MG TABLET 1000 MG PO (21:38)
--- NOTE | 2019-09-06 01:07 | PC.NURSE ---
09/06/19 01:05 sister Thao [place] returned call. Explained Angella Hercules had slid between rails onto floor with no apparent injury. Explained she is upset she will be going to another facility instead of home. Explained had muscle spasms and medication given
[2019-09-06 06:00] VITALS: BP 150/77; PULSE 97; RESP 18; TEMP 37; O2SAT 100
[2019-09-06] MEDS: BISACODYL 10 MG SUPPOSITORY RECTAL (06:12)
[2019-09-06 08:00] VITALS: PULSE 92; RESP 18; O2SAT 98
[2019-09-06] MEDS: ATORVASTATIN 40 MG TABLET 80 MG PO (08:19)
[2019-09-06] MEDS: ENOXAPARIN 40 MG/0.4 ML SYRINGE SUB-Q (08:19)
[2019-09-06] MEDS: MEGESTROL ACETATE (*CHEMO) ORAL SUSP 40 MG/ML SYR 400 MG PO ×2 (08:19→18:04)
[2019-09-06 08:20] VITALS: PULSE 96
[2019-09-06] MEDS: carvediloL 3.125 MG TABLET PO ×2 (08:20→20:04)
[2019-09-06] MEDS: POTASSIUM CHLORIDE 20 MEQ PACKET (FOR LIQUID) PO (08:20)
[2019-09-06] MEDS: AMITRIPTYLINE HCL 25 MG TABLET PO ×2 (08:20→18:04)
[2019-09-06] MEDS: FUROSEMIDE 10 MG TABLET PO (08:20)
[2019-09-06] MEDS: ASPIRIN 325 MG TABLET PO (08:20)
[2019-09-06] MEDS: SPIRONOLACTONE 25 MG TABLET PO (08:20)
[2019-09-06] MEDS: DOCUSATE SODIUM 100 MG CAPSULE PO ×2 (08:21→20:04)
[2019-09-06 14:00] VITALS: BP 157/87; PULSE 102; RESP 18; TEMP 36.5; O2SAT 100
--- NOTE | 2019-09-06 18:08 | WPDNEURORHBP ---
Subjective Date/time seen: 09/06/19 18:08 Interval history: this 63-year-old woman is here after having had left hemispheric stroke which has left her with significant aphasia and right-sided hemiplegia she is stable and doing fairly well she will constipated we are addressing that however she denies any abdominal pain does not have any vomiting is not a complain of any fever chills sore throat headache fever chills Review of Systems Review of Systems: All systems reviewed & are unremarkable except as noted in HPI and below Functional Status Ambulation Ability Ability to Ambulate 10 Feet: Standby Assistance Ability to Ambulate 50 Feet With 2 Turns: Standby Assistance Ability to Ambulate 150 Feet: Standby Assistance Ambulation Assistive Devices: Walker, Wheeled Transfers Ability Ability to Transfer In/Out of Chair: Moderate Assistance X 1 Exam Const: General: comfortable and no acute distress HENMT: General nose exam: Normal nares present Mouth: Yes moist mucous membranes Eyes: General: appearance normal, both eyes and all related structures Neck: Neck: supple and no JVD Resp: Effort & Inspection: normal respiratory effort Auscultation: clear to auscultation bilaterally Cardio: Rate: regular rate Rhythm: regular rhythm GI: GI Palp: Yes Soft to palpation Auscultation: normal bowel sounds Skin: General skin exam: normal color and no rashes or lesions noted Neuro: Other: patient is awake and alert follows commands has rather dense aphasia and jargon speech and right-sided hemiplegia Extrem: General: normal to inspection Psych: Other: pleasant and aphasia Objective Data Vital Signs Vital Signs: Vital Signs - 24 hr 09/05/19 20:00 09/05/19 20:53 09/05/19 21:58 Temperature Pulse Rate 100 78 109 H Respiratory Rate 18 20 Blood Pressure 148/74 H Pulse Oximetry 98 95 09/05/19 22:00 09/06/19 06:00 09/06/19 08:00 Temperature 36.6 C 37.0 C Pulse Rate 100 97 92 Respiratory Rate 18 18 18 Blood Pressure 173/81 H 150/77 H Pulse Oximetry 98 100 98 09/06/19 08:20 09/06/19 14:00 Temperature 36.5 C Pulse Rate 96 102 H Respiratory Rate 18 Blood Pressure 157/87 H Pulse Oximetry 100 Intake/Output Intake/Output: Intake & Output 09/03/19 09/04/19 09/05/1909/05/20 23:59 23:59 23:59 23:59 Intake Total 1320 720 780 Balance 1320 720 780 Meds/Results Medications: Active Medications Generic Name Dose Route Start Last Admin Trade Name Freq PRN Reason Stop Dose Admin Acetaminophen 1,000 mg 09/03/19 20:24 09/05/19 21:38 Tylenol Tablet PO 1,000 mg Q6H PRN Administration Mild Pain (1-3) or Fever Amitriptyline HCl 25 mg 08/21/19 17:00 09/06/19 08:20 Elavil PO 25 mg BID CYRIL Administration Aspirin 325 mg 08/22/19 09:00 09/06/19 08:20 Aspirin PO 325 mg DAILY CYRIL Administration Atorvastatin Calcium 80 mg 08/22/19 09:00 09/06/19 08:19 Lipitor PO 80 mg DAILY CYRIL Administration Bisacodyl 10 mg 09/06/19 05:41 09/06/19 06:12 Dulcolax Suppository RECTAL 10 mg QAM PRN Administration Constipation Carvedilol 3.125 mg 08/21/19 21:00 09/06/19 08:20 Coreg PO 3.125 mg Q12HR CYRIL Administration Cyclobenzaprine HCl 5 mg 08/24/19 18:18 09/05/19 21:37 Flexeril PO 5 mg Q8H PRN Administration Muscle Spasm Docusate Sodium 100 mg 09/06/19 09:00 09/06/19 08:21 Colace Capsule PO 100 mg Q12HR CYRIL Administration Enoxaparin Sodium 40 mg 08/23/19 09:00 09/06/19 08:19 Lovenox SUB-Q 40 mg DAILY CYRIL Administration Furosemide 10 mg 08/22/19 09:00 09/06/19 08:20 Lasix Tablet PO 10 mg DAILY CYRIL Administration Megestrol Acetate 400 mg 08/24/19 09:00 09/06/19 08:19 Megace Oral Susp PO 400 mg BID CYRIL Administration Melatonin 5 mg 08/24/19 21:00 09/05/19 20:53 Melatonin PO 5 mg HS CYRIL Administration Montelukast Sodium 10 mg 08/21/19 18:00 09/05/19 18:00 Ruben
[2019-09-06] MEDS: MONTELUKAST SODIUM 10 MG TABLET PO (18:10)
[2019-09-06 20:04] VITALS: PULSE 88
[2019-09-06] MEDS: MELATONIN 5 MG TABLET PO (20:04)
[2019-09-06 22:00] VITALS: BP 148/84; PULSE 52; RESP 18; TEMP 37.2; O2SAT 98
[2019-09-06] MEDS: CYCLOBENZAPRINE HCL 5 MG TABLET PO (23:29)
[2019-09-07 06:00] VITALS: BP 134/85; PULSE 99; RESP 16; TEMP 36.6; O2SAT 100
[2019-09-07] MEDS: ASPIRIN 325 MG TABLET PO (09:27)
[2019-09-07] MEDS: POTASSIUM CHLORIDE 20 MEQ PACKET (FOR LIQUID) PO (09:27)
[2019-09-07] MEDS: MEGESTROL ACETATE (*CHEMO) ORAL SUSP 40 MG/ML SYR 400 MG PO ×2 (09:27→17:21)
[2019-09-07 09:28] VITALS: PULSE 99
[2019-09-07] MEDS: ENOXAPARIN 40 MG/0.4 ML SYRINGE SUB-Q (09:28)
[2019-09-07] MEDS: ATORVASTATIN 40 MG TABLET 80 MG PO (09:28)
[2019-09-07] MEDS: SPIRONOLACTONE 25 MG TABLET PO (09:28)
[2019-09-07] MEDS: carvediloL 3.125 MG TABLET PO ×2 (09:28→20:13)
[2019-09-07] MEDS: FUROSEMIDE 10 MG TABLET PO (09:28)
[2019-09-07] MEDS: AMITRIPTYLINE HCL 25 MG TABLET PO ×2 (09:29→17:21)
[2019-09-07] MEDS: DOCUSATE SODIUM 100 MG CAPSULE PO ×2 (09:29→20:13)
--- NOTE | 2019-09-07 10:12 | WPDNEURORHBP ---
Subjective Date/time seen: right hemiparesis with aphasia and [id number]/01/20 10:12 Functional Status Ambulation Ability Ability to Ambulate 10 Feet: Moderate Assistance X 1 Ability to Ambulate 50 Feet With 2 Turns: Standby Assistance Ability to Ambulate 150 Feet: Standby Assistance Ambulation Assistive Devices: Railings Transfers Ability Ability to Transfer In/Out of Chair: Moderate Assistance X 1 Exam Const: General: cooperative, comfortable and no acute distress Nutritional Appearance: average body habitus Orientation/consciousness: oriented to person and oriented to place Eyes: General: appearance normal, both eyes and all related structures Neck: Neck: full ROM Resp: Effort & Inspection: normal respiratory effort Auscultation: clear to auscultation bilaterally Cardio: Rate: regular rate Skin: General skin exam: no rashes or lesions noted Neuro: General: oriented to person and oriented to place Speech: Abnormal speech present (aphasia) Gait exam (Neuro): Spastic hemiparesis gait present Psych: Appearance: grossly normal Objective Data Vital Signs Vital Signs: Vital Signs - 24 hr 09/06/19 14:00 09/06/19 20:04 09/06/19 22:00 Temperature 36.5 C 37.2 C Pulse Rate 102 H 88 52 L Respiratory Rate 18 18 Blood Pressure 157/87 H 148/84 H Pulse Oximetry 100 98 09/07/19 06:00 09/07/19 09:28 Temperature 36.6 C Pulse Rate 99 99 Respiratory Rate 16 Blood Pressure 134/85 Pulse Oximetry 100 Intake/Output Intake/Output: Intake & Output 09/04/19 09/05/19 09/06/19 09/07/19 23:59 23:59 23:59 23:59 Intake Total 720 780 280 120 Balance 720 780 280 120 Meds/Results Medications: Active Medications Generic Name Dose Route Start Last Admin Trade Name Freq PRN Reason Stop Dose Admin Acetaminophen 1,000 mg 09/03/19 20:24 09/05/19 21:38 Tylenol Tablet PO 1,000 mg Q6H PRN Administration Mild Pain (1-3) or Fever Amitriptyline HCl 25 mg 08/21/19 17:00 09/07/19 09:29 Elavil PO 25 mg BID CYRIL Administration Aspirin 325 mg 08/22/19 09:00 09/07/19 09:27 Aspirin PO 325 mg DAILY CYRIL Administration Atorvastatin Calcium 80 mg 08/22/19 09:00 09/07/19 09:28 Lipitor PO 80 mg DAILY CYRIL Administration Bisacodyl 10 mg 09/06/19 05:41 09/06/19 06:12 Dulcolax Suppository RECTAL 10 mg QAM PRN Administration Constipation Carvedilol 3.125 mg 08/21/19 21:00 09/07/19 09:28 Coreg PO 3.125 mg Q12HR CYRIL Administration Cyclobenzaprine HCl 5 mg 08/24/19 18:18 09/06/19 23:29 Flexeril PO 5 mg Q8H PRN Administration Muscle Spasm Docusate Sodium 100 mg 09/06/19 09:00 09/07/19 09:29 Colace Capsule PO 100 mg Q12HR CYRIL Administration Enoxaparin Sodium 40 mg 08/23/19 09:00 09/07/19 09:28 Lovenox SUB-Q 40 mg DAILY CYRIL Administration Furosemide 10 mg 08/22/19 09:00 09/07/19 09:28 Lasix Tablet PO 10 mg DAILY CYRIL Administration Megestrol Acetate 400 mg 08/24/19 09:00 09/07/19 09:27 Megace Oral Susp PO 400 mg BID CYRIL Administration Melatonin 5 mg 08/24/19 21:00 09/06/19 20:04 Melatonin PO 5 mg HS CYRIL Administration Montelukast Sodium 10 mg 08/21/19 18:00 09/06/19 18:10 Singulair PO 10 mg QPM CYRIL Administration Polyethylene Glycol 17 gm 09/06/19 05:40 Miralax PO QAM PRN Constipation Potassium Chloride 20 meq 08/22/19 09:00 09/07/19 09:27 Kcl Powder (For Liquid) PO 20 meq DAILY CYRIL Administration Sodium Chloride 1 spray 08/22/19 01:56 08/22/19 02:19 [place] Nasal [place] NASAL 1 spray Q6HR PRN Administration Congestion Spironolactone 25 mg 08/22/19 09:00 09/07/19 09:28 Aldactone PO 25 mg DAILY CYRIL Administration Progress Note: A&P Assessment and Plan (1) Right hemiplegia: Code(s): G81.91 - Hemiplegia, unspecified affecting right dominant side Status: Acute (2) Aphasia: Code(s):
[2019-09-07 14:00] VITALS: BP 136/76; PULSE 92; RESP 18; TEMP 36.2; O2SAT 99
[2019-09-07] MEDS: MONTELUKAST SODIUM 10 MG TABLET PO (17:23)
[2019-09-07 20:13] VITALS: PULSE 88
[2019-09-07] MEDS: MELATONIN 5 MG TABLET PO (20:13)
[2019-09-07 22:00] VITALS: BP 131/94; PULSE 105; RESP 18; TEMP 36.9; O2SAT 100
[2019-09-08 06:00] VITALS: BP 125/90; PULSE 52; RESP 18; TEMP 35.9; O2SAT 100
[2019-09-08 08:00] VITALS: PULSE 60; RESP 18; O2SAT 100
[2019-09-08 10:56] VITALS: PULSE 60
[2019-09-08] MEDS: carvediloL 3.125 MG TABLET PO ×2 (10:56→21:53)
[2019-09-08] MEDS: ASPIRIN 325 MG TABLET PO (10:57)
[2019-09-08] MEDS: ATORVASTATIN 40 MG TABLET 80 MG PO (10:57)
[2019-09-08] MEDS: SPIRONOLACTONE 25 MG TABLET PO (10:58)
[2019-09-08] MEDS: POTASSIUM CHLORIDE 20 MEQ PACKET (FOR LIQUID) PO (10:58)
[2019-09-08] MEDS: MEGESTROL ACETATE (*CHEMO) ORAL SUSP 40 MG/ML SYR 400 MG PO ×2 (10:58→17:25)
[2019-09-08] MEDS: AMITRIPTYLINE HCL 25 MG TABLET PO ×2 (10:58→17:25)
[2019-09-08] MEDS: ENOXAPARIN 40 MG/0.4 ML SYRINGE SUB-Q (10:58)
[2019-09-08] MEDS: DOCUSATE SODIUM 100 MG CAPSULE PO ×2 (10:58→21:53)
[2019-09-08] MEDS: FUROSEMIDE 10 MG TABLET PO (10:58)
--- NOTE | 2019-09-08 13:45 | WPDNEURORHBP ---
Subjective Date/time seen: 09/08/19 13:45 Interval history: this 63-year-old woman is here after having had a left hemispheric stroke with aphasia and significant right-sided hemiplegia she is alert denies any complaints we discussed the team conference with sister Thao situation was appraised the patient will most likely go to residential facility based on the significant neurological deficit and the also the family situation The patient does not seem to be any distress and as best I can determine she denies any headache nausea vomiting chest pain shortness of breath fever chills or sore throat Review of Systems Review of Systems: All systems reviewed & are unremarkable except as noted in HPI and below Functional Status Ambulation Ability Ability to Ambulate 10 Feet: Maximum Assistance X 1 Ability to Ambulate 50 Feet With 2 Turns: Standby Assistance Ability to Ambulate 150 Feet: Standby Assistance Ambulation Assistive Devices: Railings Transfers Ability Ability to Transfer In/Out of Chair: Moderate Assistance X 1 Exam Const: General: comfortable and no acute distress HENMT: General nose exam: Normal nares present Mouth: Yes moist mucous membranes Eyes: General: appearance normal, both eyes and all related structures Neck: Neck: supple and no JVD Resp: Effort & Inspection: normal respiratory effort Auscultation: clear to auscultation bilaterally Cardio: Rate: regular rate Rhythm: regular rhythm GI: GI Palp: Yes Soft to palpation Auscultation: normal bowel sounds Skin: General skin exam: normal color and no rashes or lesions noted Neuro: General: gait normal Other: patient is aphasic follow simple commands right-sided hemiplegia is Extrem: General: normal to inspection Psych: Other: patient is aphasic neither delirious plegia and anxious at times she is impulsive the Objective Data Vital Signs Vital Signs: Vital Signs - 24 hr 09/07/19 14:00 09/07/19 20:13 09/07/19 22:00 Temperature 36.2 C L 36.9 C Pulse Rate 92 88 105 H Respiratory Rate 18 18 Blood Pressure 136/76 131/94 H Pulse Oximetry 99 100 09/08/19 06:00 09/08/19 10:56 Temperature 35.9 C L Pulse Rate 52 L 60 Respiratory Rate 18 Blood Pressure 125/90 Pulse Oximetry 100 Intake/Output Intake/Output: Intake & Output 09/05/19 09/06/19 09/07/19 09/08/19 23:59 23:59 23:59 23:59 Intake Total 780 280 600 220 Balance 780 280 600 220 Meds/Results Medications: Active Medications Generic Name Dose Route Start Last Admin Trade Name Freq PRN Reason Stop Dose Admin Acetaminophen 1,000 mg 09/03/19 20:24 09/05/19 21:38 Tylenol Tablet PO 1,000 mg Q6H PRN Administration Mild Pain (1-3) or Fever Amitriptyline HCl 25 mg 08/21/19 17:00 09/08/19 10:58 Elavil PO 25 mg BID CYRIL Administration Aspirin 325 mg 08/22/19 09:00 09/08/19 10:57 Aspirin PO 325 mg DAILY CYRIL Administration Atorvastatin Calcium 80 mg 08/22/19 09:00 09/08/19 10:57 Lipitor PO 80 mg DAILY CYRIL Administration Bisacodyl 10 mg 09/06/19 05:41 09/06/19 06:12 Dulcolax Suppository RECTAL 10 mg QAM PRN Administration Constipation Carvedilol 3.125 mg 08/21/19 21:00 09/08/19 10:56 Coreg PO 3.125 mg Q12HR CYRIL Administration Cyclobenzaprine HCl 5 mg 08/24/19 18:18 09/06/19 23:29 Flexeril PO 5 mg Q8H PRN Administration Muscle Spasm Docusate Sodium 100 mg 09/06/19 09:00 09/08/19 10:58 Colace Capsule PO 100 mg Q12HR CYRIL Administration Enoxaparin Sodium 40 mg 08/23/19 09:00 09/08/19 10:58 Lovenox SUB-Q 40 mg DAILY CYRIL Administration Furosemide 10 mg 08/22/19 09:00 09/08/19 10:58 Lasix Tablet PO 10 mg DAILY CYRIL Administration Megestrol Acetate 400 mg 08/24/19 09:00 09/08/19 10:58 Megace Oral Susp PO 400 mg BID CYRIL Administration Melatonin 5 mg 08/24/19 21:00 09/07/19 20:13 Melatonin PO 5 mg HS CYRIL Administration [place]
[2019-09-08 14:00] VITALS: BP 109/89; PULSE 93; RESP 17; TEMP 36.5; O2SAT 94
[2019-09-08] MEDS: MONTELUKAST SODIUM 10 MG TABLET PO (17:25)
[2019-09-08 21:53] VITALS: PULSE 80
[2019-09-08] MEDS: MELATONIN 5 MG TABLET PO (21:53)
[2019-09-08 22:00] VITALS: BP 112/79; PULSE 105; RESP 18; TEMP 37.1; O2SAT 97
[2019-09-09] VITALS (7 sets, daily range): BP systolic 125–169; BP diastolic 87–104; PULSE 90–100; RESP 18–20; TEMP 36.2–36.7; O2SAT 99–100
[2019-09-09] MEDS: MEGESTROL ACETATE (*CHEMO) ORAL SUSP 40 MG/ML SYR 400 MG PO ×2 (09:53→17:52)
[2019-09-09] MEDS: POTASSIUM CHLORIDE 20 MEQ PACKET (FOR LIQUID) PO (09:53)
[2019-09-09] MEDS: ATORVASTATIN 40 MG TABLET 80 MG PO (09:53)
[2019-09-09] MEDS: DOCUSATE SODIUM 100 MG CAPSULE PO ×2 (09:53→21:12)
[2019-09-09] MEDS: FUROSEMIDE 10 MG TABLET PO (09:53)
[2019-09-09] MEDS: AMITRIPTYLINE HCL 25 MG TABLET PO ×2 (09:53→17:52)
[2019-09-09] MEDS: ENOXAPARIN 40 MG/0.4 ML SYRINGE SUB-Q (09:54)
[2019-09-09] MEDS: ASPIRIN 325 MG TABLET PO (09:54)
[2019-09-09] MEDS: SPIRONOLACTONE 25 MG TABLET PO (09:54)
[2019-09-09] MEDS: carvediloL 3.125 MG TABLET PO ×2 (09:54→21:11)
--- NOTE | 2019-09-09 10:10 | WPDNEURORHBP ---
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 she was able to walk about 13 feet obviously with the assistance which is much improved comparing to the previous several days she does not seem to be any distress she is little impulsive but pleasant smiling following commands denies any headache nausea vomiting chest pain shortness of breath fever chills or sore throat Review of Systems Review of Systems: All systems reviewed & are unremarkable except as noted in HPI and below Functional Status Ambulation Ability Ability to Ambulate 10 Feet: Moderate Assistance X 1 Ability to Ambulate 50 Feet With 2 Turns: Standby Assistance Ability to Ambulate 150 Feet: Standby Assistance Ambulation Assistive Devices: Railings Transfers Ability Ability to Transfer In/Out of Chair: Moderate Assistance X 1 Exam Const: General: comfortable and no acute distress HENMT: General nose exam: Normal nares present Mouth: Yes moist mucous membranes Eyes: General: appearance normal, both eyes and all related structures Neck: Neck: supple and no JVD Resp: Effort & Inspection: normal respiratory effort Auscultation: clear to auscultation bilaterally Cardio: Rate: regular rate Rhythm: regular rhythm GI: GI Palp: Yes Soft to palpation Auscultation: normal bowel sounds Skin: General skin exam: normal color and no rashes or lesions noted Neuro: Other: patient has universal global aphasia however able to follow few simple commands trying to order words but is total garbled speech and she swallows some improvement in her right-sided hemiplegia and was able to walk about 13 feet with of course assistance Extrem: General: normal to inspection Psych: Other: aphasic but not in anyway suffering from an obvious depression and are abnormal mood and affect Objective Data Vital Signs Vital Signs: Vital Signs - 24 hr 09/08/19 10:56 09/08/19 14:00 09/08/19 21:53 Temperature 36.5 C Pulse Rate 60 93 80 Respiratory Rate 17 Blood Pressure 109/89 Pulse Oximetry 94 09/08/19 22:00 09/09/19 06:00 09/09/19 09:54 Temperature 37.1 C 36.4 C L Pulse Rate 105 H 95 94 Respiratory Rate 18 18 Blood Pressure 112/79 132/91 H Pulse Oximetry 97 100 Intake/Output Intake/Output: Intake & Output 09/06/19 09/07/19 09/08/19 09/09/19 23:59 23:59 23:59 23:59 Intake Total 280 600 900 240 Balance 280 600 900 240 Meds/Results Medications: Active Medications Generic Name Dose Route Start Last Admin Trade Name Freq PRN Reason Stop Dose Admin Acetaminophen 1,000 mg 09/03/19 20:24 09/05/19 21:38 Tylenol Tablet PO 1,000 mg Q6H PRN Administration Mild Pain (1-3) or Fever Amitriptyline HCl 25 mg 08/21/19 17:00 09/09/19 09:53 Elavil PO 25 mg BID [facility] Administration Aspirin 325 mg 08/22/19 09:00 09/09/19 09:54 Aspirin PO 325 mg DAILY [facility] Administration Atorvastatin Calcium 80 mg 08/22/19 09:00 09/09/19 09:53 Lipitor PO 80 mg DAILY [facility] Administration Bisacodyl 10 mg 09/06/19 05:41 09/06/19 06:12 Dulcolax Suppository RECTAL 10 mg QAM PRN Administration Constipation Carvedilol 3.125 mg 08/21/19 21:00 09/09/19 09:54 Coreg PO 3.125 mg Q12HR [facility] Administration Cyclobenzaprine HCl 5 mg 08/24/19 18:18 09/06/19 23:29 Flexeril PO 5 mg Q8H PRN Administration Muscle Spasm Docusate Sodium 100 mg 09/06/19 09:00 09/09/19 09:53 Colace Capsule PO 100 mg Q12HR [facility] Administration Enoxaparin Sodium 40 mg 08/23/19 09:00 09/09/19 09:54 Lovenox SUB-Q 40 mg DAILY [facility] Administration Furosemide 10 mg 08/22/19 09:00 09/09/19 09:53 Lasix Tablet PO 10 mg DAILY [facility] Administration Megestrol Acetate 400 mg 08/24/19 09:00 09/09/19 09:53 Megace Oral Susp PO 400 mg BID [facility] Administration Melaton
[2019-09-09 12:58] LABS: SARS-CoV-2 RNA PCR Negative
[2019-09-09] MEDS: MONTELUKAST SODIUM 10 MG TABLET PO (17:54)
[2019-09-09] MEDS: MELATONIN 5 MG TABLET PO (21:12)
[2019-09-10 06:00] VITALS: BP 142/76; PULSE 90; RESP 16; TEMP 36.1; O2SAT 100
[2019-09-10] MEDS: ACETAMINOPHEN 500 MG TABLET 1000 MG PO (06:07)
[2019-09-10] MEDS: ENOXAPARIN 40 MG/0.4 ML SYRINGE SUB-Q (08:46)
[2019-09-10 08:47] VITALS: PULSE 90
[2019-09-10] MEDS: ASPIRIN 325 MG TABLET PO (08:47)
[2019-09-10] MEDS: MEGESTROL ACETATE (*CHEMO) ORAL SUSP 40 MG/ML SYR 400 MG PO ×2 (08:47→17:03)
[2019-09-10] MEDS: ATORVASTATIN 40 MG TABLET 80 MG PO (08:47)
[2019-09-10] MEDS: FUROSEMIDE 10 MG TABLET PO (08:47)
[2019-09-10] MEDS: SPIRONOLACTONE 25 MG TABLET PO (08:47)
[2019-09-10] MEDS: carvediloL 3.125 MG TABLET PO ×2 (08:47→20:41)
[2019-09-10] MEDS: AMITRIPTYLINE HCL 25 MG TABLET PO ×2 (08:47→17:03)
[2019-09-10] MEDS: DOCUSATE SODIUM 100 MG CAPSULE PO ×2 (08:47→20:40)
[2019-09-10] MEDS: POTASSIUM CHLORIDE 20 MEQ PACKET (FOR LIQUID) PO (08:47)
--- NOTE | 2019-09-10 11:23 | WPDNEURORHBP ---
Subjective Date/time seen: 09/10/19 11:23 Interval history: This 63-year-old was admitted here after having had rather large left hemispheric stroke which has left her with the aphasia and right-sided hemiplegia she did show improvement in her aphasia and some improvement in her right hemiplegia she does not seem to be any distress denies any headache nausea vomiting chest pain or shortness of breath she will be discharged tomorrow to a [facility] facility Review of Systems Review of Systems: All systems reviewed & are unremarkable except as noted in HPI and below Functional Status Ambulation Ability Ability to Ambulate 10 Feet: Moderate Assistance X 1 Ability to Ambulate 50 Feet With 2 Turns: Standby Assistance Ability to Ambulate 150 Feet: Standby Assistance Ambulation Assistive Devices: Railings Transfers Ability Ability to Transfer In/Out of Chair: Moderate Assistance X 1 Exam Const: General: comfortable and no acute distress HENMT: General nose exam: Normal nares present Mouth: Yes moist mucous membranes Eyes: General: appearance normal, both eyes and all related structures Neck: Neck: supple and no JVD Resp: Effort & Inspection: normal respiratory effort Auscultation: clear to auscultation bilaterally Cardio: Rate: regular rate Rhythm: regular rhythm GI: GI Palp: Yes Soft to palpation Auscultation: normal bowel sounds Skin: General skin exam: normal color and no rashes or lesions noted Neuro: Other: very dense aphasia has some improvement she is able to follow commands better and able to repeat some words but with very diff much difficulty right-sided hemiplegia has shown some improvement but she still needs lot of assistance almost all the activities of daily living Extrem: General: normal to inspection Psych: Other: patient is aphasic Objective Data Vital Signs Vital Signs: Vital Signs - 24 hr 09/09/19 14:35 09/09/19 19:53 09/09/19 21:11 Temperature 36.2 C L 36.7 C Pulse Rate 94 97 90 Respiratory Rate 18 20 Blood Pressure 131/90 169/104 H Pulse Oximetry 100 100 09/09/19 22:00 09/10/19 06:00 09/10/19 08:47 Temperature 36.7 C 36.1 C L Pulse Rate 100 90 90 Respiratory Rate 18 16 Blood Pressure 125/87 142/76 H Pulse Oximetry 99 100 Intake/Output Intake/Output: Intake & Output 09/07/19 09/08/19 09/09/1904/20 23:59 23:59 23:59 23:59 Intake Total 600 900 360 120 Balance 600 900 360 120 Meds/Results Medications: Active Medications Generic Name Dose Route Start Last Admin Trade Name Freq PRN Reason Stop Dose Admin Acetaminophen 1,000 mg 09/03/19 20:24 09/10/19 06:07 Tylenol Tablet PO 1,000 mg Q6H PRN Administration Mild Pain (1-3) or Fever Amitriptyline HCl 25 mg 08/21/19 17:00 09/10/19 08:47 Elavil PO 25 mg BID [facility] Administration Aspirin 325 mg 08/22/19 09:00 09/10/19 08:47 Aspirin PO 325 mg DAILY [facility] Administration Atorvastatin Calcium 80 mg 08/22/19 09:00 09/10/19 08:47 Lipitor PO 80 mg DAILY [facility] Administration Bisacodyl 10 mg 09/06/19 05:41 09/06/19 06:12 Dulcolax Suppository RECTAL 10 mg QAM PRN Administration Constipation Carvedilol 3.125 mg 08/21/19 21:00 09/10/19 08:47 Coreg PO 3.125 mg Q12HR [facility] Administration Cyclobenzaprine HCl 5 mg 08/24/19 18:18 09/06/19 23:29 Flexeril PO 5 mg Q8H PRN Administration Muscle Spasm Docusate Sodium 100 mg 09/06/19 09:00 09/10/19 08:47 Colace Capsule PO 100 mg Q12HR [facility] Administration Enoxaparin Sodium 40 mg 08/23/19 09:00 09/10/19 08:46 Lovenox SUB-Q 40 mg DAILY [facility] Administration Furosemide 10 mg 08/22/19 09:00 09/10/19 08:47 Lasix Tablet PO 10 mg DAILY [facility] Administration Megestrol Acetate 400 mg 08/24/19 09:00 09/10/19 08:47 Megace Oral Susp PO 400 mg BID [facility] Administration Melatonin 5 mg 08/24/19 21:00 09/09/19 21:12 Melatonin PO 5 mg HS [facility] Administ
--- NOTE | 2019-09-10 13:12 | PCDIET ---
Nutrition Follow-Up Complete: Nutrition Diagnosis: Suboptimal oral intake related to decreased appetite as evidenced by average intake of 27% of meals since admission. Nutrition Goal: Patient to consume 50% of meals/supplements or more. Goal in progress. Average intake from last review was only 34% of meals; however, patient consistently taking Ensure Compact with meals (660kcal and 27g protein daily). Diet is 2g sodium, minced and moist. Last recorded weight is 48.4 kg. Recommend obtaining new weight. Bowel Motility: BM x 1 on 09/09/19. Labs Reviewed: Glu (107), BUN (31), Cr (1.1), Na (136) Meds Noted: Colace, Lasix, Megace, Miralax, KCl, Aldactone Additional Notes: No documented pressure sores. Will continue to monitor with same goal. Nutrition Monitoring and Evaluation: Follow up in 5 days.
[2019-09-10 14:00] VITALS: BP 135/83; PULSE 92; RESP 20; TEMP 36.2; O2SAT 100
[2019-09-10] MEDS: MONTELUKAST SODIUM 10 MG TABLET PO (17:03)
[2019-09-10 20:41] VITALS: PULSE 80
[2019-09-10] MEDS: MELATONIN 5 MG TABLET PO (20:44)
[2019-09-10 22:00] VITALS: BP 132/79; PULSE 77; RESP 16; TEMP 37.2; O2SAT 100
[2019-09-11 06:00] VITALS: BP 127/56; PULSE 65; RESP 18; TEMP 36.4; O2SAT 100
[2019-09-11] MEDS: AMITRIPTYLINE HCL 25 MG TABLET PO (10:07)
[2019-09-11 10:08] VITALS: PULSE 65
[2019-09-11] MEDS: ASPIRIN 325 MG TABLET PO (10:08)
[2019-09-11] MEDS: ENOXAPARIN 40 MG/0.4 ML SYRINGE SUB-Q (10:08)
[2019-09-11] MEDS: ATORVASTATIN 40 MG TABLET 80 MG PO (10:08)
[2019-09-11] MEDS: carvediloL 3.125 MG TABLET PO (10:08)
[2019-09-11] MEDS: DOCUSATE SODIUM 100 MG CAPSULE PO (10:08)
[2019-09-11] MEDS: FUROSEMIDE 10 MG TABLET PO (10:09)
[2019-09-11] MEDS: MEGESTROL ACETATE (*CHEMO) ORAL SUSP 40 MG/ML SYR 400 MG PO (10:09)
[2019-09-11] MEDS: POTASSIUM CHLORIDE 20 MEQ PACKET (FOR LIQUID) PO (10:09)
[2019-09-11] MEDS: SPIRONOLACTONE 25 MG TABLET PO (10:10)
--- NOTE | 2019-09-16 10:42 | PM.DS ---
DS: Admitting Diagnosis Admitting Diagnosis Admitting Diagnosis: Cerebral infarction due to unspecified occlusion or stenosis of left middle cerebral artery DS: Discharge Diagnosis Discharge Diagnosis (1) Right hemiplegia: Code(s): G81.91 - Hemiplegia, unspecified affecting right dominant side Status: Acute (2) Aphasia: Code(s): R47.01 - Aphasia Status: Acute (3) Anorexia: Code(s): R63.0 - Anorexia Status: Acute (4) History of stroke: Code(s): Z86.73 - Personal history of transient ischemic attack (TIA), and cerebral infarction without residual deficits Status: Acute (5) Hypertension: Code(s): I10 - Essential (primary) hypertension Status: Acute (6) Diabetes mellitus: Code(s): E11.9 - Type 2 diabetes mellitus without complications Status: Acute (7) Left middle cerebral artery stroke: Code(s): I63.512 - Cerebral infarction due to unspecified occlusion or stenosis of left middle cerebral artery Status: Acute DS: Summary Hospital Course Reason for hospitalization: the patient was admitted primarily because of rather devastating left hemispheric stroke which had left this 64-year-old woman with significant aphasia and right hemiplegia she did receive extensive speech therapy and to a certain degree she was able to put couple of words together however her right hemiplegia was the began rinse for her to be discharged to home she did receive extensive speech PT OT and medical management of her Emelia underlying medical issues mentioned in my initial history and physical examination and as above Hospital Course: during the course of hospitalization after receiving extensive therapy she was able to achieve the following independent measures Eating was set up oral hygiene supervision toileting substantial bathing substantial upper body dressing substantial lower body dressing partial assistance footwear substantial rolling in bed supervision sitting to lying partial assistance lying to sitting partial assistance sit to stand partial assistance chair transfers partial assistance toilet transfers partial assistance car transfers partial assistance walking 10 feet partial assistance walking 50 feet with 2 turns patient was unable to walking 150 feet patient was unable to walking 10 feet uneven surfaces patient was unable to curb our staff patient was unable to 4 steps patient was unable to 12 steps patient was unable to pick him about object parts patient was unable to wheelchair 50 feet partial assistance wheelchair and 50 feet partial assistance the patient would discharged to senior living facility Status at Discharge Cognitive/behavioral status at discharge: stable and improved however not enough for her to go in her home environment Time Spent with Patient Time attestation: Total time spent providing and/or coordinating discharge services: Exam Const: General: comfortable and no acute distress HENMT: General nose exam: Normal nares present Mouth: Yes moist mucous membranes Eyes: General: appearance normal, both eyes and all related structures EOM: EOMs intact bilaterally Neck: Neck: supple and no JVD Resp: Effort & Inspection: normal respiratory effort Auscultation: clear to auscultation bilaterally Cardio: Rate: regular rate Rhythm: regular rhythm GI: GI Palp: Yes Soft to palpation Auscultation: normal bowel sounds Skin: General skin exam: normal color and no rashes or lesions noted Neuro: Other: significant mixed aphasia with little improvement however the right hemiplegia almost stable and may be little improvement Extrem: General: normal to inspection Psych: Mental Status: mental status grossly normal Discharge Plan Discharge Attending physician on discharge: Jono Holder Discharging Clinician: Jono Holder Patient Disposition: Home Health Service Activity: no driving Diet: diabetic and low sodium Discharge Ins
== END 2019-09-11 13:00 | DRG 57 ==
PROVIDERS: Admitting Provider Psychiatry & Neurology Neurology; PCP Internal Medicine; Visit Provider Psychiatry & Neurology Neurology
DX: I69.351 Hemiplegia and hemiparesis following cerebral infarction affecting right dominant side (principal); Z68.1 Body mass index [BMI] 19.9 or less, adult; I69.320 Aphasia following cerebral infarction; I34.0 Nonrheumatic mitral (valve) insufficiency; I11.0 Hypertensive heart disease with heart failure; I25.10 Atherosclerotic heart disease of native coronary artery without angina pectoris; I50.9 Heart failure, unspecified; E11.51 Type 2 diabetes mellitus with diabetic peripheral angiopathy without gangrene; N39.498 Other specified urinary incontinence; R63.0 Anorexia; Z95.1 Presence of aortocoronary bypass graft; Z87.891 Personal history of nicotine dependence
CPT/HCPCS: 36415; 80048; 80061; 83036; 84132; 85025; 87635; 92507; 92523; 92526; 93005; 97110; 97112; 97116; 97129; 97162; 97166; 97530; 97535; 97542; A9270; C9803; J1650; U0003